=== PATIENT | male | born 1980 | race African-American/Black ===

== ENCOUNTER 2018-12-24 16:06 | Inpatient (IN) | payer OTHER ==
[~2018-12-24] VITALS: Ht 180.3 cm; Wt 90.7 kg
--- NOTE | 2018-12-24 16:15 | NUR ---
PATIENT BIB W/C TO ER BED 4.
[2018-12-24 16:20] VITALS: BP 110/62
--- NOTE | 2018-12-24 16:24 | NUR ---
DR. SANTIAGO BEDSIDE EVALUATING PT
[2018-12-24] MEDS ORDERED: MORPHINE SULFATE 4 MG/ML SYR IVP ONE ×2 (16:35→17:35)
[2018-12-24] MEDS ORDERED: ONDANSETRON 4 MG/2 ML VIAL IVP ONE (16:35)
[2018-12-24 16:57] LABS: BASOPHILS % (AUTO) 0.5 % (0.0-2.0); EOSINOPHILS # (AUTO) 0.1 K/uL (0-0.4); EOSINOPHILS % (AUTO) 1.3 % (0.0-4.0); HEMATOCRIT 40.3 % (36-52); HEMOGLOBIN 12.7 g/dL (12.0-18.0); LYMPHOCYTES # (AUTO) 1.7 K/uL (2.0-11.5); LYMPHOCYTES % (AUTO) 42.6 % (20.5-51.1); MEAN CORPUSCULAR HEMOGLOBIN 24 pg (27-31); MEAN CORPUSCULAR HGB CONC 32 g/dL (33-37); MEAN CORPUSCULAR VOLUME 75.4 fL (80-94); MONOCYTES # (AUTO) 0.5 K/uL (0.8-1.0); MONOCYTES % (AUTO) 12.5 % (1.7-9.3); NEUTROPHILS # (AUTO) 1.7 K/uL (1.8-7.7); NEUTROPHILS % (AUTO) 43.1 % (42.2-75.2); PLATELET COUNT (AUTO) 96 K/uL (140-450); RED BLOOD CELL COUNT(AUTO) 5.34 MIL/uL (4.20-6.10); RED CELL DISTRIBUTION WIDTH 13.2 % (11.6-13.7)
[2018-12-24] MEDS ORDERED: DIPH50CA69 PO ×2 (16:58→21:00)
[2018-12-24] MEDS ORDERED: DICL-388 PO (16:58)
[2018-12-24] MEDS ORDERED: OXYC5TAB4 PO ×2 (16:58→20:57)
[2018-12-24] MEDS ORDERED: BENA20TA PO ×2 (16:58→20:57)
[2018-12-24] MEDS ORDERED: MELA5TAB6 PO ×2 (16:58→20:57)
[2018-12-24] MEDS ORDERED: FERR325E14 PO ×2 (16:58→20:57)
[2018-12-24] MEDS ORDERED: ORE25 PO ×2 (16:58→20:57)
[2018-12-24] MEDS ORDERED: [UNRECOGNIZED DRUG - CODE] PO ×2 (16:58→20:57)
[2018-12-24] MEDS ORDERED: PSEU30TA PO ×2 (16:58→20:57)
[2018-12-24] MEDS ORDERED: FURO-570 PO ×2 (16:58→20:57)
[2018-12-24] MEDS ORDERED: METF500T2 PO ×2 (16:58→20:57)
[2018-12-24] MEDS ORDERED: GABA100C PO ×2 (16:58→20:57)
[2018-12-24] MEDS ORDERED: OXYC60TE PO ×2 (16:58→20:57)
[2018-12-24] MEDS ORDERED: FAMO-90 PO ×2 (16:58→20:57)
[2018-12-24] MEDS ORDERED: TRAZ-343 PO ×3 (16:58→20:58)
[2018-12-24] MEDS ORDERED: PHEN100C3 PO ×2 (16:58→20:57)
[2018-12-24] MEDS ORDERED: GABA300C PO (16:58)
[2018-12-24] MEDS ORDERED: LEVE500T18 PO ×2 (16:58→20:57)
[2018-12-24] MEDS ORDERED: ALPR0.5T2 PO ×2 (16:58→20:11)
[2018-12-24] MEDS ORDERED: CLOP75TA55 PO ×2 (16:58→20:57)
[2018-12-24] MEDS ORDERED: [UNRECOGNIZED DRUG - CODE] PO ×2 (16:58→20:57)
[2018-12-24 17:17] LABS: ALBUMIN 3.7 g/dL (3.4-5.0); ANION GAP 12.4 (8-16); CARBON DIOXIDE 31.5 mmol/L (21-32); TOTAL BILIRUBIN 0.3 mg/dL (0.0-1.0)
[2018-12-24 17:19] LABS: POTASSIUM 2.9 mmol/L (3.5-5.1)
[2018-12-24 17:28] LABS: CREATINE KINASE MB 2.4 ng/mL (0-3.6)
--- NOTE | 2018-12-24 17:45 | NUR ---
COLLECTED URINE SAMPLE FORM THE PT.
[2018-12-24] MEDS ORDERED: KCL 20 MEQ/WATER INJ PREMIX 100 ML IV ONE (17:50)
--- NOTE | 2018-12-24 17:50 | NUR ---
ADMINISTERED MORPHINE ORDERED. PT REFUSED TO TAKE NITROGLYCERINE AND ASPIRIN , STATES TO HAVE ALLERGY TO THOSE MEDICATION. DR. SHARMA AWARE. WILL CONTINUE TO MONITIOR PT.
[2018-12-24 18:21] LABS: BARBITURATE, URINE NEG. ng/ml (NEG <=200); BENZODIAZEPINE, URINE NEG. ng/mL (NEG <=200); CANNABINOID, URINE NEG. ng/mL (NEG <=50); COCAINE, URINE NEG. ng/mL (NEG <=300); OPIATE, URINE POS. ng/mL (NEG <=2000); PHENCYCLIDINE SCREEN,URINE NEG. ng/mL (NEG <=25)
--- NOTE | 2018-12-24 18:40 | NUR ---
PT MOANING WITH CHEST PAIN. DR. SHARMA AWARE. AT HIS BEDSIDE. WILL CONTINUE TO MONITOR PT.
[2018-12-24] MEDS ORDERED: ZOLPIDEM 5 MG TAB PO PRN (18:45)
[2018-12-24] MEDS ORDERED: LORazepam 2 MG/ML VIAL IM/IVP PRN ×2 (18:45→20:15)
[2018-12-24] MEDS ORDERED: DOCUSATE SODIUM 100 MG GELCAP PO PRN (18:45)
[2018-12-24] MEDS ORDERED: ONDANSETRON 4 MG/2 ML VIAL IM/IVP PRN (18:45)
[2018-12-24] MEDS ORDERED: POTASSIUM CHLORIDE 40 MEQ, LIDOCAINE MPF 1% - 5 mL VIAL 25 MG in NACL 0.9% 250 ML IV ONE (19:00)
[2018-12-24 19:06] LABS: APPEARANCE,URINE CLEAR (CLEAR); BILIRUBIN,URINE NEGATIVE (NEGATIVE); BLOOD, URINE NEGATIVE (NEGATIVE); COLOR,URINE YELLOW (YELLOW); LEUKOCYTE ESTERASE ,URINE NEGATIVE (NEGATIVE); NITRITE, URINE NEGATIVE (NEGATIVE); UGLUCOSE NEGATIVE (NEGATIVE)
[2018-12-24 19:22] LABS: PROTHROMBIN TIME 10.8 secs (10.8-13.4)
[2018-12-24 19:30] VITALS: BP 111/76
--- NOTE | 2018-12-24 19:30 | NUR ---
Patient will be admitted to care of . Admited to . Will go to room. Belongings list completed. Report to .
--- NOTE | 2018-12-24 19:30 | NUR ---
RECEIVED REPORT FROM ER NURSE. PATIENT IS AWAKE, ALERT, AND COOPERATIVE. RESPIRATION EVEN UNLABORED ON ROOM AIR. NO DISTRESS NOTED. SKIN IS WARM AND DRY. IV PATENT AND INTACT. PATIENT COMPLAINED OF CHEST PAIN 01/31. DOCTOR SACHIN AT BEDSIDE. AUSCULTATION OF LUNGS SOUNDS CLEAR. BOWEL SOUNDS PRESENT IN ALL QUADRANT. ABDOMEN SOFT AND NON-TENDER. LAST BM 12/24/18. VITALS WERE TAKEN. MRSA SCREEN DONE. SEIZURE PRECAUTION IN PLACE. PLAN OF CARE WAS DISCUSSED. ORIENT PATIENT TO ROOM, STAFF, AND CALL LIGHT. BED IS AT LOW POSITION. CALL LIGHT WITHIN REACH AND VERBALIZES ITS USE. WILL CONTINUE TO MONITOR.
--- NOTE | 2018-12-24 19:31 | NUR ---
REPORT GIVEN TO LISA JUNE. PT STABLE AT THIS TIME.
[2018-12-24 19:37] LABS: CHOL/HDL RATIO 2.3 (1-4.5); MAGNESIUM 1.8 mg/dL (1.8-2.4); THYROID STIMULATING HORMONE 0.72 uIU/mL (0.34-3.74)
[2018-12-24] MEDS ORDERED: MAG SULF 2000 MG/WATER PREMIX 50 ML IV ONE (20:20)
[2018-12-24] MEDS: NACL 0.9% 1,000 ML IV SCH (20:23)
[2018-12-24] MEDS ORDERED: KCL 20 MEQ/WATER INJ PREMIX 200 ML IV ONE (20:25)
[2018-12-24] MEDS: HYDROmorphone PFS 2 MG/ML SYR IVP PRN (20:30)
[2018-12-24] MEDS: ATORVASTATIN 20 MG TAB PO SCH (20:30)
--- NOTE | 2018-12-24 20:30 | NUR ---
PATIENT COMPLAINED OF CHEST PAIN 8/. PRN PAIN MED ADMINISTERED. WILL CONTINUE TO MONITOR.
[2018-12-24] MEDS ORDERED: SERT25TA PO (20:57)
[2018-12-24] MEDS ORDERED: BUS5 PO (20:57)
[2018-12-24] MEDS ORDERED: PHENYTOIN 100 MG CAPER PO SCH (21:00)
[2018-12-24] MEDS ORDERED: DICL100T2 PO (21:00)
[2018-12-24] MEDS ORDERED: oxyCODONE 5 MG TAB PO SCH (21:00)
--- NOTE | 2018-12-24 21:00 | NUR ---
ALL SCHEDULED MEDS WERE GIVEN PER ORDER. WILL CONTINUE TO MONITOR.
[2018-12-24] MEDS ORDERED: MELATONIN 3 MG TAB PO PRN (21:10)
[2018-12-24] MEDS: CLOPIDOGREL 75 MG TAB PO SCH (21:10)
[2018-12-24] MEDS ORDERED: DICLOFENAC 75 MG TABEC PO SCH (21:10)
[2018-12-24] MEDS: traZODone 50 MG TAB PO SCH (21:48)
[2018-12-24] MEDS: diphenhydrAMINE 50 MG CAP PO SCH (21:48)
[2018-12-24] MEDS: busPIRone 5 MG TAB PO SCH (21:48)
[2018-12-24] MEDS: levETIRAcetam 500 MG TAB PO SCH (21:49)
[2018-12-24] MEDS: FERROUS SULFATE 325 MG TABEC PO SCH (21:49)
[2018-12-24] MEDS: ALPRAZolam 0.5 MG TAB PO SCH (21:50)
[2018-12-24] MEDS: GABAPENTIN 300 MG CAP PO SCH (21:50)
[2018-12-24] MEDS: BENAZEPRIL 20 MG TAB PO SCH (21:50)
[2018-12-24] MEDS: FAMOTIDINE 20 MG TAB PO SCH (21:50)
[2018-12-24] MEDS: metFORMIN 500 MG TAB PO SCH (21:51)
--- NOTE | 2018-12-24 23:00 | NUR ---
CHECKED PATIENT. PATIENT IN BED WATCHING TV NO DISTRESS NOTED. WILL CONTINUE TO MONITOR.
[2018-12-25] VITALS: BP 111/61
--- NOTE | 2018-12-25 | NUR ---
VITALS WERE TAKEN. PATIENT IN STABLE CONDITION. NO DISTRESS NOTED. WILL CONTINUE TO MONITOR.
--- NOTE | 2018-12-25 00:40 | NUR ---
PATIENT COMPLAINED OF FEELING ANXIOUS. PRN ATIVAN 1MG ADMINISTERED PER ORDER. WILL CONTINUE TO MONITOR.
[2018-12-25] MEDS ORDERED: OXYC5TAB4 PO (01:00)
[2018-12-25] MEDS ORDERED: OXYC60TE PO (01:06)
[2018-12-25] MEDS: HYDROmorphone PFS 2 MG/ML SYR IVP PRN ×2 (02:48→08:13)
--- NOTE | 2018-12-25 02:48 | NUR ---
PATIENT WOKE UP FROM CHEST PAIN 01/31. PRN PAIN MED ADMINISTERED PER ORDER. WILL CONTINUE TO MONITOR.
[2018-12-25 03:12] LABS: BASOPHILS % (AUTO) 0.5 % (0.0-2.0); EOSINOPHILS # (AUTO) 0.1 K/uL (0-0.4); EOSINOPHILS % (AUTO) 0.6 % (0.0-4.0); HEMATOCRIT 40.6 % (36-52); HEMOGLOBIN 12.8 g/dL (12.0-18.0); LYMPHOCYTES # (AUTO) 1.7 K/uL (2.0-11.5); LYMPHOCYTES % (AUTO) 19.6 % (20.5-51.1); MEAN CORPUSCULAR HEMOGLOBIN 24 pg (27-31); MEAN CORPUSCULAR HGB CONC 32 g/dL (33-37); MEAN CORPUSCULAR VOLUME 76.1 fL (80-94); MONOCYTES # (AUTO) 0.7 K/uL (0.8-1.0); MONOCYTES % (AUTO) 8.1 % (1.7-9.3); NEUTROPHILS # (AUTO) 6.1 K/uL (1.8-7.7); NEUTROPHILS % (AUTO) 71.2 % (42.2-75.2); PLATELET COUNT (AUTO) 94 K/uL (140-450); RED BLOOD CELL COUNT(AUTO) 5.34 MIL/uL (4.20-6.10); RED CELL DISTRIBUTION WIDTH 13.2 % (11.6-13.7); WHITE BLOOD COUNT (AUTO) 8.6 K/uL (4.8-10.8)
[2018-12-25] MEDS ORDERED: INSULIN LISPRO SLIDING SCALE 100 UNITS/ML VIAL SUBQ PRN (03:15)
[2018-12-25] MEDS ORDERED: DEXTROSE 50% 50 ML SYR IVP PRN (03:15)
[2018-12-25 03:23] LABS: ANION GAP 12.3 (8-16); CARBON DIOXIDE 29.9 mmol/L (21-32); CREATININE 1.1 mg/dL (0.7-1.3); POTASSIUM 4.2 mmol/L (3.5-5.1)
[2018-12-25 04:00] VITALS: BP 94/58
--- NOTE | 2018-12-25 04:00 | NUR ---
VITALS WERE TAKEN. PATIENT IN STABLE CONDITION. NO DISTRESS NOTED. WILL CONTINUE TO MONITOR.
[2018-12-25] MEDS: BLOOD GLUCOSE MONITORING 1 DEV DEV FS SCH ×4 (06:24→20:59)
--- NOTE | 2018-12-25 06:30 | NUR ---
PATIENT WENT TO CT SCAN IN STABLE CONDITION. NO DISTRESS NOTED.
--- NOTE | 2018-12-25 07:14 | NUR ---
ENDORSED PATIENT TO DAY SHIFT NURSE FOR CONTINUITY OF CARE. PATIENT IN STABLE CONDITION.
--- NOTE | 2018-12-25 07:15 | NUR ---
RECEIVED ENDORSEMENT FROM INSPECTOR SCREEN PRINTING NURSE. PATIENT IS SLEEPING, EASILY AROUSABLE. RIGHT FA 20G IV INTACT, PATENT, AND INFUSING IVF. PATIENT DENIES ANY PAIN. PLAN OF CARE WAS REVIEWED WITH PATIENT. PATIENT VERBALIZED UNDERSTANDING. SAFETY MEASURES IN PLACE, CALL LIGHT WITHIN REACH. Addendum: 12/25/18 at 0728 by Carolina Pedro RN RESPIRATIONS ARE EVEN AND UNLABORED ON ROOM AIR.
[2018-12-25 08:00] VITALS: BP 106/58
[2018-12-25] MEDS: metFORMIN 500 MG TAB PO SCH ×2 (08:14→17:51)
[2018-12-25] MEDS: GABAPENTIN 300 MG CAP PO SCH ×4 (08:18→21:04)
[2018-12-25] MEDS: ALPRAZolam 0.5 MG TAB PO SCH (08:19)
[2018-12-25] MEDS: SERTRALINE 50 MG TAB PO SCH (08:20)
[2018-12-25] MEDS: FAMOTIDINE 20 MG TAB PO SCH ×2 (08:21→21:05)
[2018-12-25] MEDS: levETIRAcetam 500 MG TAB PO SCH ×2 (08:21→21:03)
[2018-12-25] MEDS: PHENYTOIN 100 MG CAPER PO SCH ×2 (08:21→21:03)
[2018-12-25] MEDS: FERROUS SULFATE 325 MG TABEC PO SCH ×2 (08:21→21:03)
[2018-12-25] MEDS: CLOPIDOGREL 75 MG TAB PO SCH (08:22)
--- NOTE | 2018-12-25 08:32 | NUR ---
ADMINISTERED SCHEDULED MEDICATIONS. HELD CLOPIDOGREL FOR PLATELETS OF 94. PATIENT TOLERATED WELL. PATIENT C/O PAIN TO CHEST. ADMINISTERED DILAUDID PRN IVP. NO OTHER NEEDS AT THIS TIME, WILL CONTINUE TO MONITOR.
[2018-12-25] MEDS ORDERED: CA CARB PO SCH (09:00)
[2018-12-25] MEDS ORDERED: LISINOPRIL 5 MG TAB PO SCH (09:00)
[2018-12-25] MEDS ORDERED: GLUC PO SCH (09:00)
[2018-12-25] MEDS ORDERED: MAG OX PO SCH (09:00)
[2018-12-25] MEDS ORDERED: GINSENG PO SCH (09:00)
--- NOTE | 2018-12-25 09:16 | NUR ---
PATIENT HAS BEEN SCREENED AND CATEGORIZED MODERATE NUTRITION RISK. PATIENT WILL BE SEEN WITHIN 3-5 DAYS OF ADMISSION. 12/27/1802/09JUAN M SAMANIEGO MBA, RD
[2018-12-25] MEDS ORDERED: HYDROmorphone PFS 2 MG/ML SYR IVP PRN (09:30)
[2018-12-25] MEDS ORDERED: oxyCODONE 10 MG TABER PO SCH ×2 (09:30)
[2018-12-25] MEDS: busPIRone 5 MG TAB PO SCH ×3 (09:41→17:51)
[2018-12-25] MEDS: METOPROLOL 25 MG TAB PO SCH ×2 (09:42→21:00)
[2018-12-25] MEDS: BENAZEPRIL 20 MG TAB PO SCH ×2 (09:43→21:06)
[2018-12-25] MEDS: FUROSEMIDE 40 MG TAB PO SCH (09:43)
--- NOTE | 2018-12-25 09:49 | NUR ---
ADMINISTERED SCHEDULED MEDICATIONS. ADMINISTERED OXYCODONE, ASKED PHARMACY IF OK TO GIVE DUE TO ALLERGY TO HYDROCODONE. PER PHARMACY, THIS IS PATIENTS HOME MED. ADMINISTERED PO BENADRYL, PATIENT STATES HE IS ALLERGIC TO MILK AND APPLES. NO OTHER NEEDS AT THIS TIME, WILL CONTINUE TO MONITOR. Addendum: 12/25/18 at 0953 by Carolina Pedro RN DR. KO IS AWARE OF ALLERGY TO MILK
--- NOTE | 2018-12-25 09:56 | NUR ---
PATIENT STATED HE NEEDED SOMETHING "RIGHT NOW." ORDERED IVP BENADRYL. ADMINISTERED BENADRYL ONE TIME IVP. Addendum: 12/25/18 at 0957 by Carolina Pedro RN PATIENT TOLERATED WELL, NO OTHER NEEDS AT THIS TIME.
[2018-12-25] MEDS ORDERED: diphenhydrAMINE 50 MG/ML VIAL IVP SCH (10:00)
--- NOTE | 2018-12-25 10:58 | NUR ---
NOTIFIED DR. PIKE THAT HIS PATIENT IS HERE, PER . DR. PIKE STATED THAT HE WOULD NOT LIKE TO THAT OVER THE PATIENTS CARE AT THIS TIME. DR. GUTIERRES IS AWARE.
--- NOTE | 2018-12-25 11:15 | NUR ---
PER DR. GUTIERRES ORDER, FAXED REQUEST TO [facility] FOR PERCUTANEOUS CORONARY INTERVENTION.
--- NOTE | 2018-12-25 11:30 | NUR ---
PATIENTS BLOOD SUGAR 63. GAVE PATIENT ORANGE JUICE, PUDDING, SOUP, AND CRACKERS. PATIENT IS ASYMPTOMATIC AT THIS TIME. WILL CONTINUE TO MONITOR.
[2018-12-25 12:00] VITALS: BP 109/56
[2018-12-25] MEDS: oxyCODONE 5 MG TAB PO SCH ×2 (12:24→21:07)
--- NOTE | 2018-12-25 12:30 | NUR ---
ADMINISTERED SCHEDULED MEDICATIONS. PATIENT C/O OF PAIN. ADMINISTERED SCHEDULED PAIN MEDICATION. NO OTHER NEEDS AT THIS TIME, WILL CONTINUE TO MONITOR.
[2018-12-25] MEDS: MORPHINE SULFATE 2 MG/ML SYR IVP PRN ×2 (13:47→20:16)
--- NOTE | 2018-12-25 14:50 | NUR ---
PATIENT ASKING FOR SANDWICH, EDUCATED [facility]. PATIENT DENIES PAIN AT THIS TIME. NO OTHER NEEDS AT THIS TIME, WILL CONTINUE TO MONITOR.
[2018-12-25 16:00] VITALS: BP 94/54
--- NOTE | 2018-12-25 16:50 | NUR ---
PATIENT SLEEPING, EASILY AROUSABLE. NO OTHER NEEDS AT THIS TIME, WILL CONTINUE TO MONITOR.
[2018-12-25] MEDS ORDERED: DICLOFENAC 75 MG TABEC PO SCH (17:00)
--- NOTE | 2018-12-25 17:52 | NUR ---
VOLTAREN NOT AVAILABLE IN [place]. AWAITING PHARMACY. NOT IN PATIENTS CASSETTE EITHER.
[2018-12-25] MEDS: NACL 0.9% 1,000 ML IV SCH (18:44)
--- NOTE | 2018-12-25 19:20 | NUR ---
RECEIVED PT IN STABLE CONDITION FROM AM NURSE. AWAKE,ALERT AND ORIENTED X4. ON TELE MONITOR. NO DISCOMFORT NOTED AT THIS TIME. HAS IVF INFUSING WELL ON THE RT FA G#20, CLEAR AND PATENT. PLAN OF CARE DISCUSSED AND VERBALIZED UNDERSTANDING. BED ON LOW POSITION. CALL LIGHT WITHIN EASY REACH. WILL CONTINUE TO MONITOR.
--- NOTE | 2018-12-25 19:20 | NUR ---
ENDORSED TO RISK CONTROL FIELD REPRESENTATIVE NURSE FOR CONTINUITY OF CARE. PATIENT IS STABLE AT THIS TIME.
[2018-12-25 19:45] VITALS: BP 106/56
--- NOTE | 2018-12-25 20:59 | NUR ---
BLOOD SUGAR WAS CHECKED RESULT 73. PROVIDED WITH SOME SANDWICH AND JUICE. TOLERATED WELL. WILL CONTINUE TO MONITOR.
[2018-12-25] MEDS: diphenhydrAMINE 50 MG CAP PO SCH (21:02)
[2018-12-25] MEDS: traZODone 50 MG TAB PO SCH (21:03)
[2018-12-25] MEDS: ATORVASTATIN 20 MG TAB PO SCH (21:04)
[2018-12-25] MEDS: oxyCODONE 10 MG TABER PO SCH (21:05)
[2018-12-25] MEDS ORDERED: ALBUTEROL SULFATE/IPRATROPIU 3 ML SOL IH PRN (22:05)
--- NOTE | 2018-12-25 22:30 | NUR ---
PT DISCONNECTED TO THE IVF . HAD WASHED UP IN THE BATHROOM. NEW GOWN PROVIDED.
[2018-12-25] MEDS ORDERED: diphenhydrAMINE 50 MG/ML VIAL IVP ONE (23:50)
[2018-12-26] VITALS: BP 105/57
--- NOTE | 2018-12-26 00:01 | NUR ---
C/O ITCHING , DR. CASTILLO MADE AWARE WITH ORDER. BENADRYL 25MG IVP ONCE GIVEN. WILL CONTINUE TO MONITOR.
[2018-12-26] MEDS ORDERED: diphenhydrAMINE 50 MG/ML VIAL ONE (00:11)
--- NOTE | 2018-12-26 03:00 | NUR ---
PT ASLEEP. NO S/S OF ANY DISCOMFORT NOTED.
[2018-12-26] MEDS: oxyCODONE 5 MG TAB PO SCH ×2 (04:25→16:23)
[2018-12-26 04:27] VITALS: BP 107/65
--- NOTE | 2018-12-26 05:00 | NUR ---
PT IS ASLEEP. NO S/S OF ANY PAIN NOTED AT THIS TIME.
[2018-12-26] MEDS: BLOOD GLUCOSE MONITORING 1 DEV DEV FS SCH ×3 (06:17→16:27)
[2018-12-26] MEDS: MORPHINE SULFATE 2 MG/ML SYR IVP PRN ×2 (06:50→12:44)
--- NOTE | 2018-12-26 07:15 | NUR ---
ENDORSED PT IN STABLE CONDITION TO AM NURSE.
--- NOTE | 2018-12-26 07:25 | NUR ---
RECEIVED BEDSIDE REPORT FROM SCREEN MAKING SUPERVISOR NURSE AT BEDSIDE. PT IS AWAKE AND ALERT, NO S/S OF ANY ACUTE DISTRESS OR SOB. PT IS ON ROOM AIR, SKIN INTACT. IV SITE NOTED ON THE R FA 20 G, INFUSING NS 20 ML/HR. ACCORDING TO NIGHT NURSE, PT HAS A [employer] PACEMAKER THAT NEEDS TO BE INTERROGATED TODAY. WILL CONTACT [employer] THIS AM. SEIZURE PRECAUTIONS ARE IN PLACE, CALL LIGHT WITHIN REACH. WILL CONTINUE TO MONITOR.
[2018-12-26 07:30] LABS: ANION GAP 9.6 (8-16); CARBON DIOXIDE 30.8 mmol/L (21-32); CREATININE 0.9 mg/dL (0.7-1.3); POTASSIUM 4.4 mmol/L (3.5-5.1)
[2018-12-26 07:34] LABS: BASOPHILS % (AUTO) 0.5 % (0.0-2.0); EOSINOPHILS # (AUTO) 0.1 K/uL (0-0.4); EOSINOPHILS % (AUTO) 4.2 % (0.0-4.0); HEMATOCRIT 32.6 % (36-52); HEMOGLOBIN 10.3 g/dL (12.0-18.0); LYMPHOCYTES # (AUTO) 1.7 K/uL (2.0-11.5); LYMPHOCYTES % (AUTO) 49.8 % (20.5-51.1); MEAN CORPUSCULAR HEMOGLOBIN 24 pg (27-31); MEAN CORPUSCULAR HGB CONC 32 g/dL (33-37); MEAN CORPUSCULAR VOLUME 76.1 fL (80-94); MONOCYTES # (AUTO) 0.4 K/uL (0.8-1.0); MONOCYTES % (AUTO) 11.5 % (1.7-9.3); NEUTROPHILS # (AUTO) 1.2 K/uL (1.8-7.7); PLATELET COUNT (AUTO) 79 K/uL (140-450); RED BLOOD CELL COUNT(AUTO) 4.28 MIL/uL (4.20-6.10); RED CELL DISTRIBUTION WIDTH 13.6 % (11.6-13.7); WHITE BLOOD COUNT (AUTO) 3.4 K/uL (4.8-10.8)
[2018-12-26 07:35] LABS: MAGNESIUM 1.8 mg/dL (1.8-2.4); PHOSPHORUS 3.6 mg/dL (2.5-4.9)
[2018-12-26 08:00] VITALS: BP 104/64
[2018-12-26] MEDS ORDERED: PHEN100C4 PO (08:27)
[2018-12-26] MEDS ORDERED: BENA20TA PO (08:27)
--- NOTE | 2018-12-26 08:29 | NUR ---
CALLED [employer] TO SCHEDULE A TECH TO COME INTERROGATE PT'S PACEMAKER. THE REP SAID AN ON-CALL [employer] TECH WILL COME OUT TODAY TO INTERROGATE PT'S PACEMAKER.
[2018-12-26] MEDS: CLOPIDOGREL 75 MG TAB PO SCH (09:00)
[2018-12-26] MEDS: busPIRone 5 MG TAB PO SCH ×2 (09:00→16:23)
[2018-12-26] MEDS: METOPROLOL 25 MG TAB PO SCH (09:00)
[2018-12-26] MEDS: BENAZEPRIL 20 MG TAB PO SCH (09:00)
[2018-12-26] MEDS ORDERED: DICLOFENAC 75 MG TABEC PO SCH (09:00)
[2018-12-26] MEDS: metFORMIN 500 MG TAB PO SCH (09:00)
[2018-12-26] MEDS: GABAPENTIN 300 MG CAP PO SCH ×2 (09:00→16:23)
[2018-12-26] MEDS: oxyCODONE 10 MG TABER PO SCH (09:01)
[2018-12-26] MEDS: FUROSEMIDE 40 MG TAB PO SCH (09:01)
[2018-12-26] MEDS: SERTRALINE 50 MG TAB PO SCH (09:01)
[2018-12-26] MEDS: levETIRAcetam 500 MG TAB PO SCH (09:02)
[2018-12-26] MEDS: PHENYTOIN 100 MG CAPER PO SCH (09:02)
[2018-12-26] MEDS: ALPRAZolam 0.5 MG TAB PO SCH (09:02)
[2018-12-26] MEDS: FERROUS SULFATE 325 MG TABEC PO SCH (09:02)
[2018-12-26] MEDS: FAMOTIDINE 20 MG TAB PO SCH (09:02)
--- NOTE | 2018-12-26 09:14 | NUR ---
PT HAD 1 EPISODE OF EMESIS. PT C/O FEELING NAUSEOUS. PRN IV ZOFRAN ADMINISTERED. SCHEDULED AM MEDS ADMINISTERED AFTERWARDS, PT TOLERATED WELL.
--- NOTE | 2018-12-26 11:24 | NUR ---
PT'S BLOOD SUGAR IS CURRENTLY 54. IV DEXTROSE INJECTION ADMINISTERED ORDERED, AND PT WAS GIVEN ORANGE JUICE, AND A TUNA SANDWICH, PER HIS REQUEST. WILL RECHECK PT'S BLOOD SUGAR IN 20 MINUTES.
--- NOTE | 2018-12-26 11:45 | NUR ---
GOT A CALL FROM THE [employer] SONNY MCKEON, HE SAYS THAT PT DOES NOT MATCH ANY NAMES IN THE SYSTEM, ADN THEREFORE WOULD NOT BE ABLE TO BE INTERROGATED BY [employer]. HE SAYS THAT THE PACEMAKER COULD BE MADE BY A DIFFERENT COMPANY AND GAVE ME THREE OTHER COMPANIES TO CALL AND SEE IF THEY MATCH THE PT. THE COMPANIES ARE [employer] [phone]; [employer] [phone]; [employer] [phone]. WILL CALL EACH OF THEM TO SEE IF PT IS IN EITHER DATABASE . CHARGE NURSE IS AWARE. Addendum: 12/26/18 at 1213 by Amy Shea RN PT IS NOT IN THE DATABASE OF ANY OF THESE PACEMAKER COMPANIES. DR KO IS AWARE, AND HE WILL CANCEL THE PACEMAKER INTERROGATION ORDER.
--- NOTE | 2018-12-26 11:59 | NUR ---
PT BLOOD GLUCOSE IS 95 AT THIS TIME
[2018-12-26 12:00] VITALS: BP 124/64
[2018-12-26] MEDS ORDERED: FAMO-90 PO (12:45)
== END 2018-12-26 18:30 | disposition home or self-care (01) | DRG 243 ==
LOC: MED 16:06 → MTU 18:50
PROVIDERS: ADMIT General Practice; ATTEND General Practice
DX: K21.9 Gastro-esophageal reflux disease without esophagitis (principal); I50.43 Acute on chronic combined systolic (congestive) and diastolic (congestive) heart failure; E11.40 Type 2 diabetes mellitus with diabetic neuropathy, unspecified; G90.8 Other disorders of autonomic nervous system; C16.9 Malignant neoplasm of stomach, unspecified; D69.6 Thrombocytopenia, unspecified; D68.59 Other primary thrombophilia; E11.69 Type 2 diabetes mellitus with other specified complication; I11.0 Hypertensive heart disease with heart failure; M94.0 Chondrocostal junction syndrome [Tietze]; I69.354 Hemiplegia and hemiparesis following cerebral infarction affecting left non-dominant side; E87.6 Hypokalemia; I25.2 Old myocardial infarction; Z95.810 Presence of automatic (implantable) cardiac defibrillator; Z88.6 Allergy status to analgesic agent; Z79.84 Long term (current) use of oral hypoglycemic drugs; Z79.02 Long term (current) use of antithrombotics/antiplatelets; Z79.899 Other long term (current) drug therapy; G40.909 Epilepsy, unspecified, not intractable, without status epilepticus; G47.00 Insomnia, unspecified; F41.9 Anxiety disorder, unspecified; J44.9 Chronic obstructive pulmonary disease, unspecified; Z82.3 Family history of stroke; Z83.3 Family history of diabetes mellitus; Z80.42 Family history of malignant neoplasm of prostate; Z80.3 Family history of malignant neoplasm of breast; Z80.0 Family history of malignant neoplasm of digestive organs; D63.8 Anemia in other chronic diseases classified elsewhere; G89.4 Chronic pain syndrome; I25.10 Atherosclerotic heart disease of native coronary artery without angina pectoris; Z95.5 Presence of coronary angioplasty implant and graft; D72.819 Decreased white blood cell count, unspecified
CPT/HCPCS: 36415; 70450; 71045; 80048; 80053; 80185; 80305; 81003; 82550; 82553; 82948; 83036; 83690; 83735; 83880; 84100; 84134; 84443; 84484; 85025; 85610; 85730; 87081; 93005; 94640; 96374; 96375; 96376; 99285; J1170; J1200; J2001; J2060; J2270; J2405; J3475; J3480; J7030; J7620; Q0092; Q0163

== ENCOUNTER 2019-01-22 13:15 | Observation (INO) | payer OTHER ==
[~2019-01-22] VITALS: Ht 190.5 cm; Wt 88.9 kg
[~2019-01-22 13:15] MED LIST: ALPR0.5T2 PO; BENA20TA PO; BUS5 PO; CLOP75TA55 PO; DICL100T2 PO; DIPH50CA69 PO; FAMO-90 PO; FURO-570 PO; GABA100C PO; LEVE500T18 PO; ORE25 PO; OXYC60TE PO; PHEN100C4 PO; SERT25TA PO; TRAZ-343 PO
[2019-01-22 13:21] VITALS: BP 112/68
--- NOTE | 2019-01-22 13:25 | NUR ---
PT C/O CHEST PAIN STARTED LAST NIGHT RADIATING TO BOTH SIDES OF JAW. PAIN 10/10 DESCRIBED PRESSURE. PATIENT STATES HE WAS ASLEEP AND THE PAIN WOKE HIM UP. DENIES DRUG USE. DENIES N/V/D; SKIN IS PINK/WARM/DRY; AAOX4 WITH EVEN AND STEADY GAIT; LUNGS CLEAR BL; HR EVEN AND REGULAR; PT DENIES ANY FEVER, SOB, OR COUGH AT THIS TIME; PATIENT STATES PAIN OF 10/10 AT THIS TIME; VSS; PATIENT POSITIONED FOR COMFORT; HOB ELEVATED; BEDRAILS UP X2; BED DOWN. ER MD MADE AWARE OF PT STATUS.
--- NOTE | 2019-01-22 13:25 | NUR ---
PT WHEELCHAIRED TO BED 2
[2019-01-22] MEDS ORDERED: MORPHINE SULFATE 4 MG/ML SYR IVP ONE ×2 (13:50→15:15)
[2019-01-22 14:26] LABS: BASOPHILS % (AUTO) 0.4 % (0.0-2.0); EOSINOPHILS # (AUTO) 0.1 K/uL (0-0.4); EOSINOPHILS % (AUTO) 1.4 % (0.0-4.0); HEMOGLOBIN 12.3 g/dL (12.0-18.0); LYMPHOCYTES # (AUTO) 1.6 K/uL (2.0-11.5); LYMPHOCYTES % (AUTO) 35.4 % (20.5-51.1); MEAN CORPUSCULAR HEMOGLOBIN 24 pg (27-31); MEAN CORPUSCULAR HGB CONC 32 g/dL (33-37); MEAN CORPUSCULAR VOLUME 74.9 fL (80-94); MONOCYTES # (AUTO) 0.4 K/uL (0.8-1.0); MONOCYTES % (AUTO) 8.2 % (1.7-9.3); NEUTROPHILS # (AUTO) 2.5 K/uL (1.8-7.7); NEUTROPHILS % (AUTO) 54.6 % (42.2-75.2); PLATELET COUNT (AUTO) 130 K/uL (140-450); RED CELL DISTRIBUTION WIDTH 13.7 % (11.6-13.7); WHITE BLOOD COUNT (AUTO) 4.5 K/uL (4.8-10.8)
[2019-01-22 14:34] LABS: ANION GAP 8.7 (8-16); CREATININE 0.9 mg/dL (0.7-1.3); POTASSIUM 3.7 mmol/L (3.5-5.1)
[2019-01-22 14:39] LABS: ALBUMIN 3.4 g/dL (3.4-5.0); TOTAL BILIRUBIN 0.2 mg/dL (0.0-1.0)
--- NOTE | 2019-01-22 15:00 | NUR ---
PT IS RESTING IN BED. FOOD PROVIDED.
[2019-01-22] MEDS ORDERED: cefTRIAXone 1,000 MG VIAL ONE (15:30)
[2019-01-22] MEDS ORDERED: PHEN100C3 PO (16:11)
[2019-01-22] MEDS ORDERED: MSCON15 PO (16:11)
[2019-01-22] MEDS ORDERED: CALC-106 PO (16:11)
[2019-01-22] MEDS ORDERED: CARB100T PO (16:11)
[2019-01-22] MEDS ORDERED: OXYC30TA PO (16:11)
[2019-01-22] MEDS ORDERED: ALPR2TAB1 PO (16:11)
[2019-01-22] MEDS ORDERED: [UNRECOGNIZED DRUG - CODE] PO (16:11)
[2019-01-22] MEDS ORDERED: MIC5 PO (16:11)
[2019-01-22] MEDS ORDERED: FISH10005 PO (16:11)
[2019-01-22] MEDS ORDERED: METF500T PO (16:11)
[2019-01-22] MEDS ORDERED: OXYC60TE PO (16:11)
[2019-01-22] MEDS ORDERED: ORE25 PO (16:11)
[2019-01-22] MEDS ORDERED: DOCU-299 PO (16:11)
[2019-01-22] MEDS ORDERED: GABA300C PO (16:11)
[2019-01-22] MEDS ORDERED: POTA10TE30 PO (16:11)
[2019-01-22] MEDS ORDERED: BENA20TA PO (16:11)
[2019-01-22] MEDS ORDERED: DIPH25TA53 PO (16:20)
[2019-01-22] MEDS ORDERED: CYAN100T65 PO (16:20)
[2019-01-22] MEDS ORDERED: AUROBINDO PO (16:23)
[2019-01-22] MEDS ORDERED: PRON INH (16:23)
[2019-01-22] MEDS ORDERED: ALBU0.0912 IH (16:23)
--- NOTE | 2019-01-22 17:30 | NUR ---
Patient will be admitted to care of Chest pain. Admited to telemetry. Will go to room 119b. Belongings list completed. Report to LISA Jack.
[2019-01-22 17:35] VITALS: BP 116/69
--- NOTE | 2019-01-22 17:35 | NUR ---
RECEIVED REPORT FROM EMERGENCY ROOM NURSE FOR CONTINUITY OF CARE. PT IN STABLE CONDITION. RESPIRATIONS EVEN AND UNLABORED, ROOM AIR. IV INTACT AND PATENT. SAFETY MEASURES IN PLACE. BED IN LOW POSITION. CALL LIGHT AT BESIDE.
--- NOTE | 2019-01-22 17:36 | NUR ---
DR. ROJAS AT BEDSIDE FOR CARDIOLOGY CONSULTATION.
--- NOTE | 2019-01-22 18:50 | NUR ---
TATO MEI DR. 0.5 DILAUDID IVP Q6.
--- NOTE | 2019-01-22 19:34 | NUR ---
GAVE REPORT TO ROSTER CLERK NURSE FOR CONTINUITY OF CARE. PT IN STABLE CONDITION.
--- NOTE | 2019-01-22 19:35 | NUR ---
RECEIVED REPORT FROM AM RN IN BED SITTING UP AWAKE AND ALERT WATCHING TV. PT. ASKING FOR SANDWICH RT COMPLAINED OF BEING VERY HUNGRY. CALL LIGHT WITH IN REACH. CHARGE NURSE INFORMED OF PT. REQUEST. DX. CHEST PAIN A ND PNA. VERBALIZES WELL WITH ME AND ABLE TO COMMUNICATE WELL. TELEMETRY MONITORING. RE-ORIENTED TO CALL LIGHT USE AND CARE PLANS FOR THE NIGHT DISCUSSED WITH HIM. RFA#20 INTACT AND NO INFILTRATION.
[2019-01-22 19:58] VITALS: BP 110/65
[2019-01-22] MEDS: HYDROmorphone 1 MG/ML AMP IVP PRN (20:15)
--- NOTE | 2019-01-22 20:16 | NUR ---
PT. SITTING UP IN BED AND MEDICATED WITH DILAUDID IVP 0.5 MG REQUESTED. ABLE TO VERBALIZE NEEDS WELL.
[2019-01-22 21:05] LABS: BARBITURATE, URINE NEG. ng/ml (NEG <=200); BENZODIAZEPINE, URINE NEG. ng/mL (NEG <=200); CANNABINOID, URINE NEG. ng/mL (NEG <=50); COCAINE, URINE NEG. ng/mL (NEG <=300); OPIATE, URINE POS. ng/mL (NEG <=2000); PHENCYCLIDINE SCREEN,URINE NEG. ng/mL (NEG <=25)
--- NOTE | 2019-01-22 21:10 | NUR ---
PT. AT THIS TIME STILL AWAKE AND WATCHING TV. NO FURTHER COMPLAINTS DONE. CALL LIGHT WITH IN REACH.
[2019-01-22] MEDS ORDERED: ONDANSETRON 4 MG/2 ML VIAL IVP PRN (22:30)
--- NOTE | 2019-01-22 23:00 | NUR ---
SLEEPING. NO RESTLESSNESS NOTED. TELEMETRY MONITORING.
[2019-01-22 23:47] VITALS: BP 110/71
--- NOTE | 2019-01-23 02:40 | NUR ---
SLEEPING. TELEMETRY MONITORING. CALL LIGHT WITH IN REACH.
[2019-01-23 04:31] VITALS: BP 111/61
[2019-01-23] MEDS: HYDROmorphone 1 MG/ML AMP IVP PRN ×2 (04:34→10:54)
--- NOTE | 2019-01-23 06:24 | NUR ---
MD MCLAUGHLIN IN HERE AND SEEN PT. NO ORDERS GIVEN TO ME.
--- NOTE | 2019-01-23 07:25 | NUR ---
RECEIVED BEDSIDE REPORT FROM VEGETABLE SORTER NURSE FOR CONTINUITY OF CARE. PATIENT AWAKE AND WATCHING TV ON BED. PATIENT AAOX4. RESPIRATION EVEN AND UNLABORED ON RA. DENIED PAIN. NO SIGNS OF DISTRESS NOTED. IV ON RFA 20,CLEAN AND INTACT,SL. SKIN CLEAN AND INTACT. PATIENT IS ABLE TO AMBULATE WITH STANDBY ASSIST AND CONTINENT. DISCUSSED PLAN OF CARE WITH PATIENT AND PATIENT VERBALIZED UNDERSTANDING. TELE MONITOR ATTACHED. SAFETY MEASURES IN PLACE. BED IN LOW POSITION AND CALL LIGHT WITHIN REACH. INSTRUCTED PATIENT TO USE THE CALL LIGHT FOR ANY ASSISTANCE AND PATIENT WAS AWARE.
[2019-01-23 07:28] LABS: BASOPHILS % (AUTO) 0.7 % (0.0-2.0); EOSINOPHILS # (AUTO) 0.1 K/uL (0-0.4); HEMATOCRIT 40.6 % (36-52); HEMOGLOBIN 12.7 g/dL (12.0-18.0); LYMPHOCYTES # (AUTO) 2.1 K/uL (2.0-11.5); LYMPHOCYTES % (AUTO) 40.9 % (20.5-51.1); MEAN CORPUSCULAR HEMOGLOBIN 24 pg (27-31); MEAN CORPUSCULAR HGB CONC 31 g/dL (33-37); MEAN CORPUSCULAR VOLUME 75.8 fL (80-94); MONOCYTES # (AUTO) 0.4 K/uL (0.8-1.0); NEUTROPHILS # (AUTO) 2.4 K/uL (1.8-7.7); NEUTROPHILS % (AUTO) 48.4 % (42.2-75.2); PLATELET COUNT (AUTO) 114 K/uL (140-450); RED BLOOD CELL COUNT(AUTO) 5.36 MIL/uL (4.20-6.10); RED CELL DISTRIBUTION WIDTH 14.1 % (11.6-13.7)
[2019-01-23 07:30] LABS: CARBON DIOXIDE 29.2 mmol/L (21-32); CREATININE 0.9 mg/dL (0.7-1.3); POTASSIUM 4.2 mmol/L (3.5-5.1)
[2019-01-23 08:00] VITALS: BP 105/62
--- NOTE | 2019-01-23 08:09 | NUR ---
PATIENT HAS BEEN SCREENED AND CATEGORIZED MODERATE NUTRITION RISK. PATIENT WILL BE SEEN WITHIN 3-5 DAYS OF ADMISSION. 01/26/19JOSEFA ROBB RD
--- NOTE | 2019-01-23 08:20 | NUR ---
PATIENT SAID THAT HE NEEDS HIS PAIN MED DILAUDID FOR PAIN 5/10. INFORMED PATIENT THAT DALAUDID WAS GIVEN AT 0434 AND SCHEDULE FOR Q6H PRN. PATIENT VERBALIZED UNDERSTANDING AND SAID THE PAIN IS TOLERABLE FOR NOW. TELE MONITOR ATTACHED. SAFETY MEASURES IN PLACE. BED IN LOW POSITION AND CALL LIGHT WITHIN REACH. INSTRUCTED PATIENT TO USE THE CALL LIGHT FOR ANY ASSISTANCE AND PATIENT WAS AWARE.
--- NOTE | 2019-01-23 08:45 | NUR ---
PATIENT COMPLAINED THAT HE HAS 8/10 PAIN AND NEEDED PAIN MED. EXPLAINED TO PATIENT THAT DILAUDID WAS SCHEDULED PRN 6H AND WILL PAGE DR MCLAUGHLIN. PAGED DR MCLAUGHLIN.
--- NOTE | 2019-01-23 09:03 | NUR ---
RECEIVED A CALL BACK FROM DR MCLAUGHLIN. PER DR MCLAUGHLIN, HE WILL NOT CHANGE THE PRN DILAUDID FROM Q6H TO Q4H DUE TO PATIENT'S CONDITION. NOTIFIED PATIENT ON DR MCLAUGHLIN'S DECISION AND PATIENT WAS AWARE. PATIENT WAS RESTING AND WATCHING TV ON BED AT THIS TIME. RESPIRATION EVEN AND UNLABORED ON RA. TELE MONITOR ATTACHED. NO SIGNS OF DISTRESS NOTED. BED IN LOW POSITION AND CALL LIGHT WITHIN REACH. INSTRUCTED PATIENT TO USE THE CALL LIGHT FOR ANY ASSISTANCE AND PATIENT WAS AWARE.
--- NOTE | 2019-01-23 10:25 | NUR ---
PATIENT STATED THAT HE IS HUNGRY AND NEEDS A SANDWICH. PAGED [facility], AND PER [facility], THEY WILL SEND A TURKEY SANDWICH. INFORMED PATIENT THAT [facility] WILL SEND A SANDWICH AND PATIENT SAID OK. PATIENT IS RESTING ON BED AT THIS TIME. NO SIGNS OF DISTRESS NOTED. SAFETY MEASURES IN PLACE. TELE MONITOR ATTACHED. BED IN LOW POSITION AND CALL LIGHT WITHIN REACH.
--- NOTE | 2019-01-23 10:39 | NUR ---
RECEIVED TURKEY SANDWICH AND DELIVERED TO PATIENT'S ROOM. PATIENT AWAKE AND SITTING UP ON BED WATCHING TV. NO SIGNS OF DISTRESS NOTED. SAFETY MEASURES IN PLACE. TELE MONITOR IN PLACE. BED IN LOW POSITION AND CALL LIGHT WITHIN REACH. INSTRUCTED PATIENT TO USE THE CALL LIGHT FOR ANY ASSISTANCE AND PATIENT WAS AWARE.
--- NOTE | 2019-01-23 10:54 | NUR ---
PATIENT COMPLAINED THAT HE HAS 9/10 CHEST PAIN AND HE FEELS RESTLESS AND IRRITABILITY. ADMINISTERED PRN PAIN MED, PATIENT TOLERATED WELL. PATIENT SITTING UP ON BED AND EATING SANDWICH. SAFETY MEASURES IN PLACE. BED IN LOW POSITION AND CALL LIGHT WITHIN REACH. INSTRUCTED PATIENT TO USE THE CALL LIGHT FOR ANY ASSISTANCE AND PATIENT WAS AWARE.
--- NOTE | 2019-01-23 11:02 | NUR ---
PATIENT REQUESTED A DIET SODA. PICKED UP FROM [employer] AND DELIVERED TO PATIENT'S ROOM. PATIENT IS WATCHING TV ON BED. NO SIGNS OF DISTRESS NOTED. SAFETY MEASURES IN PLACE. BED IN LOW POSITION AND CALL LIGHT WITHIN REACH. INSTRUCTED PATIENT TO USE THE CALL LIGHT FOR ANY ASSISTANCE AND PATIENT WAS AWARE.
--- NOTE | 2019-01-23 11:25 | NUR ---
PATIENT FEELS SOB. ASSESSED PATIENT, SPO2 IS 100% ON RA AND RR 18. LUNGS CLEAR ON AUSCULTATION. INSTRUCTED PATIENT TO BREATHING IN AND OUT SLOWLY, AND PATIENT STATED HE FEELS MUCH BETTER NOW. TELE MONITOR ATTACHED. SAFETY MEASURES IN PLACE. BED IN LOW POSITION AND CALL LIGHT WITHIN REACH. INSTRUCTED PATIENT TO USE THE CALL LIGHT FOR ANY ASSISTANCE AND PATIENT WAS AWARE.
--- NOTE | 2019-01-23 11:55 | NUR ---
INFORMED PATIENT THAT HE WILL BE DISCHARGED TODAY FROM THE HOSPITAL. ASKED DOES PATIENT HAVE TRANSPORTATION TO GO HOME OR ANY FAMILY WILL PICK HIM UP. OFFERED BUS PASS. PER PATIENT, HE WILL CALL HIS INSURANCE COMPANY AND THEY WILL PROVIDE HIM TRANSPORTATION TO GO HOME FROM HERE.
[2019-01-23 12:00] VITALS: BP 112/80
--- NOTE | 2019-01-23 12:05 | NUR ---
PER PATIENT, HE CALLED HIS INSURANCE COMPANY AND SAID THAT HIS TRACK GRINDER OPERATOR WILL BE ARRIVE AT THE HOSPITAL AROUND 1430. PATIENT IS RESTING ON BED AT THIS TIME. TELE MONITOR ATTACHED. SAFETY MEASURES IN PLACE. BED IN LOW POSITION AND CALL LIGHT WITHIN REACH. INSTRUCTED PATIENT TO USE THE CALL LIGHT FOR ANY ASSISTANCE AND PATIENT WAS AWARE.
--- NOTE | 2019-01-23 12:35 | NUR ---
PATIENT IS SITTING UP ON BED AND TALKING ON HIS PHONE. NO SIGNS OF DISTRESS NOTED. SAFETY MEASURES IN PLACE. BED IN LOW POSITION AND CALL LIGHT WITHIN REACH. INSTRUCTED PATIENT TO USE THE CALL LIGHT FOR ANY ASSISTANCE AND PATIENT WAS AWARE.
--- NOTE | 2019-01-23 12:50 | NUR ---
PATIENT WANTS TO GET PRESCRIPTION REFILL FOR HIS PAIN AND HOME MEDS. INFORMED PATIENT THAT HE NEEDS TO FOLLOW UP WITH HIS FAMILY DR INSTRUCTED BY DR MCLAUGHLIN. PER PATIENT, HE WANTS TO DR MCLAUGHLIN. PAGED DR MCLAUGHLIN.
--- NOTE | 2019-01-23 13:05 | NUR ---
PATIENT IS TALKING ON PHONE WITH DR MCLAUGHLIN AT THIS TIME. NO SIGNS OF DISTRESS NOTED. TELE MONITOR ATTACHED. SAFETY MEASURES IN PLACE. BED IN LOW POSITION AND CALL LIGHT WITHIN REACH.
--- NOTE | 2019-01-23 13:25 | NUR ---
DISCHARGE INSTRUCTION PROVIDED TO PATIENT AT BEDSIDE. PATIENT IS AAOX4 AND ABLE TO COMMUNICATE APPROPRIATELY. EDUCATED PATIENT ON SEEK MEDICAL HELP IN CASE OF EMERGENCY, MD FOLLOW UP, DISEASE MANAGEMENT, MEDICATION REGIMEN, MEDICATIONS SIDE EFFECTS, AND DIET REGIMEN. ANSWERED ALL PATIENT'S QUESTIONS AND PATIENT VERBALIZED UNDERSTANDING. DC IV AND CANNULA INTACT AND COMPLETED, NO BLEEDING AT IV SITE. REMOVED ALL ARM BANDS AND REMOVED TELE MONITOR. PATIENT CHECKED ALL THE CABINETS AND TOOK ALL HIS BELONGING. WHEEL-CHAIRED PATIENT TO THE LOBBY AND PATIENT IS GOING TO DC AT THIS TIME. PATIENT IS IN STABLE CONDITION.
--- NOTE | 2019-01-23 13:31 | NUR ---
MET WITH THE PATIENT AT THE BEDSIDE TO GATHER INFORMATION REGARDING HIS PCP. HE PROVIDED ME WITH [phone] AND HE STATED THAT HE HAS A FOLLOW UP VISIT IN 2 WEEKS. CONTACTED THE PROVIDED NUMBER, SPOKE TO PADMA IN DR. MCPHERSON'S OFFICE, SHE STATED THAT HE IS NO LONGER THERE PATIENT DUE TO PROVIDER. WENT BACK TO THE PATIENT AND ASK MORE INFORMATION. PATIENT STATED THAT HE WILL TAKE CARE OF THE APPOINTMENT. MST DIRECTOR MAKENZIE AT BEDSIDE GETTING READY TO WHEEL THE PATIENT OUT. PATIENT PROVIDED ME WITH [phone], HIS NEW PCP'S NUMBER. CONTACTED THE SAID NUMBER AND THE ONE THAT ANSWERED ME STATED THAT I GOT THE WRONG NUMBER. CHARGE NURSE MADE AWARE.
--- NOTE | 2019-01-23 16:08 | NUR ---
I CALL PATIENT HE GAVE ME NEW NUMBER FOR HIS PRIMARY MD [phone], relayed to social media marketer to follow up.
--- NOTE | 2019-01-23 16:50 | NUR ---
CONTACTED THE NUMBER WHICH PATIENT PROVIDED TO [facility] DIRECTOR MAKENZIE, . ABLE TO SPEAK TO ELISABET. SHE STATED THAT PATIENT CONTACTED THEM ALREADY AND HAVE AN APPOINTMENT FOR SaturdayJan AT 1500. PCP IS DR. OWEN, ADDRESS IS [address] [place] [id number]. Addendum: 01/23/19 at 1654 by Nasrin Cooper CM PATIENT MADE AWARE OF THE APPOINTMENT. PATIENT IS AGREEABLE.
== END 2019-01-23 13:25 | disposition home or self-care (01) ==
LOC: MED 13:15 → MTU 16:42
PROVIDERS: ADMIT Internal Medicine; ATTEND Internal Medicine
DX: R07.89 Other chest pain (principal); J44.9 Chronic obstructive pulmonary disease, unspecified; I11.0 Hypertensive heart disease with heart failure; I50.22 Chronic systolic (congestive) heart failure; G40.909 Epilepsy, unspecified, not intractable, without status epilepticus; I25.10 Atherosclerotic heart disease of native coronary artery without angina pectoris; E11.9 Type 2 diabetes mellitus without complications; F11.20 Opioid dependence, uncomplicated; Z95.810 Presence of automatic (implantable) cardiac defibrillator; Z95.1 Presence of aortocoronary bypass graft; Z88.6 Allergy status to analgesic agent; Z76.5 Malingerer [conscious simulation]; I42.9 Cardiomyopathy, unspecified
CPT/HCPCS: 36415; 71045; 80048; 80053; 80305; 84484; 85025; 87040; 87081; 96365; 96375; 96376; 99285; G0378; J0696; J1170; J2270; J7060; Q0092

== ENCOUNTER 2019-07-14 16:15 | Inpatient (IN) | payer OTHER ==
[~2019-07-14] VITALS: Ht 180.3 cm; Wt 108.9 kg
[~2019-07-14 16:15] MED LIST changes: +ALBU0.0912 IH; -ALPR0.5T2 PO; +ALPR2TAB1 PO; +AUROBINDO PO; -BUS5 PO; +CALC-106 PO; +CARB100T PO; +CYAN100T65 PO; -DICL100T2 PO; +DIPH25TA53 PO; -DIPH50CA69 PO; +DOCU-299 PO; -FAMO-90 PO; +FISH10005 PO; -GABA100C PO; +GABA300C PO; +METF500T PO; +MIC5 PO; +MSCON15 PO; +OXYC30TA PO; +PHEN100C3 PO; -PHEN100C4 PO; +POTA10TE30 PO; +PRON INH; -SERT25TA PO; -TRAZ-343 PO; +[UNRECOGNIZED DRUG - CODE] PO
--- NOTE | 2019-07-14 16:20 | NUR ---
BIB WHEELCHAIR TO ER BED 5
[2019-07-14 16:24] VITALS: BP 136/92
--- NOTE | 2019-07-14 16:33 | NUR ---
39 Y/O MALE C/O CHEST PAIN X 3 DAYS WORSENING TODAY. PT STATES HE PASSED OUT ON SIDEWALK AND HIT BACK AND LT SHOULDER ON CONCRETE. STATES SOB. 9/10 PRESSURE, RADIATING TO BACK. STATES 2 EPISODES OF VOMITING AND NAUSEA S/P CHEST PAIN. NUMBNESS TO BILATERAL UPPER EXTREMITIES. RR EVEN AND UNLABORED. PT PLACED ON THE MONITOR. WILL CONTINUE TO MONITOR. MEDHX: CHF, CARDIAC DISORDER, HTN, COPD, SEIZURES
[2019-07-14] MEDS ORDERED: MORPHINE SULFATE 4 MG/ML SYR IVP ONE (16:45)
[2019-07-14] MEDS ORDERED: diphenhydrAMINE 50 MG/ML VIAL IVP ONE (16:45)
[2019-07-14] MEDS ORDERED: ONDANSETRON 4 MG/2 ML VIAL IVP ONE (16:45)
--- NOTE | 2019-07-14 17:19 | NUR ---
RADIOLOGY AT BEDSIDE
[2019-07-14 17:33] LABS: BASOPHILS % (AUTO) 0.4 % (0.0-2.0); EOSINOPHILS # (AUTO) 0.1 K/uL (0-0.4); EOSINOPHILS % (AUTO) 1.9 % (0.0-4.0); HEMATOCRIT 37.5 % (36-52); HEMOGLOBIN 11.6 g/dL (12.0-18.0); LYMPHOCYTES # (AUTO) 1.6 K/uL (2.0-11.5); LYMPHOCYTES % (AUTO) 44.1 % (20.5-51.1); MEAN CORPUSCULAR HEMOGLOBIN 24 pg (27-31); MEAN CORPUSCULAR HGB CONC 31 g/dL (33-37); MEAN CORPUSCULAR VOLUME 76.5 fL (80-94); MONOCYTES # (AUTO) 0.4 K/uL (0.8-1.0); MONOCYTES % (AUTO) 11.9 % (1.7-9.3); NEUTROPHILS # (AUTO) 1.6 K/uL (1.8-7.7); NEUTROPHILS % (AUTO) 41.7 % (42.2-75.2); PLATELET COUNT (AUTO) 92 K/uL (140-450); RED CELL DISTRIBUTION WIDTH 14.5 % (11.6-13.7); WHITE BLOOD COUNT (AUTO) 3.7 K/uL (4.8-10.8)
[2019-07-14 17:57] LABS: MAGNESIUM 2.1 mg/dL (1.8-2.4)
--- NOTE | 2019-07-14 18:01 | NUR ---
PT SITTING UPRIGHT, RR EVEN AND UNLABORED, CALM AND PLEASANT. VSS. WILL CONTINUE TO MONITOR
[2019-07-14 18:03] LABS: ALBUMIN 3.9 g/dL (3.4-5.0); ANION GAP 10.1 (8-16); CARBON DIOXIDE 32.5 mmol/L (21-32); POTASSIUM 3.6 mmol/L (3.5-5.1); TOTAL BILIRUBIN 0.2 mg/dL (0.0-1.0)
[2019-07-14] MEDS ORDERED: ONDANSETRON 4 MG/2 ML VIAL IM/IVP PRN (18:05)
[2019-07-14] MEDS ORDERED: DOCUSATE SODIUM 100 MG GELCAP PO PRN (18:05)
[2019-07-14 18:29] LABS: D-DIMER < 100 ng/ml (0-400)
[2019-07-14 18:30] LABS: PROTHROMBIN TIME 9.9 secs (10.8-13.4)
--- NOTE | 2019-07-14 18:50 | NUR ---
PT STATES UNABLE TO GIVE URINE
[2019-07-14] MEDS ORDERED: NACL 0.9% 1,000 ML IV SCH (19:00)
--- NOTE | 2019-07-14 19:11 | NUR ---
RECEIVED BESIDE REPORT FROM ED NURSE KIKO. PATIENT ARRIVED IN UNIT VIA GURNEY. PATIENT IS AMBULATORY. NO SOB OR DISTRESS NOTED. IV ACCESS ON RIGHT FOREARM 20 GAUGE, PATENT AND INTACT. PACEMAKER IN PLACE. MRSA SWAB DONE AND SENT TO LAB. PATIENT ORIENTED TO ROOM. INITIAL ASSESSMENT DONE. INITIAL VITAL SIGNS TAKEN. ON SEIZURE PRECAUTION. BED IN LOW, SAFETY MEASURES IN PLACE. CALL LIGHT PLACED WITHIN PATIENT REACH. WILL CONTINUE TO MONITOR PATIENT.
--- NOTE | 2019-07-14 19:17 | NUR ---
Patient will be admitted to care of DR SANDOVAL. Admited to TELE. Will go to room 105B. Belongings list completed. Report to LISA SOLANO.
[2019-07-14 19:44] LABS: ACETONE, SERUM NEGATIVE (NEGATIVE)
[2019-07-14 19:52] LABS: PHOSPHORUS 4.1 mg/dL (2.5-4.9); THYROID STIMULATING HORMONE 0.84 uIU/mL (0.34-3.74)
[2019-07-14] MEDS ORDERED: CARI350T PO (20:45)
[2019-07-14] MEDS ORDERED: ALPRAZolam 0.5 MG TAB PO PRN (20:50)
[2019-07-14] MEDS ORDERED: OXYCODONE HCL 30 MG PO SCH (20:50)
[2019-07-14] MEDS ORDERED: INSULIN LISPRO SLIDING SCALE 100 UNITS/ML VIAL SUBQ PRN (21:10)
[2019-07-14] MEDS ORDERED: ALBUTEROL SULFATE/IPRATROPIU 3 ML SOL IH PRN (21:10)
[2019-07-14] MEDS ORDERED: DEXTROSE 50% 50 ML SYR IVP PRN (21:10)
--- NOTE | 2019-07-14 21:30 | NUR ---
ROUNDS DONE. PATIENT LAYING ON BED WATCHING TV. CALL LIGHT PLACED WITHIN PATIENT REACH. WILL CONTINUE TO MONITOR PATIENT.
[2019-07-14] MEDS: levETIRAcetam 500 MG TAB PO SCH (21:58)
[2019-07-14] MEDS: GABAPENTIN 300 MG CAP PO SCH (21:59)
[2019-07-14] MEDS: POTASSIUM CHLORIDE 10 MEQ TABER PO SCH (21:59)
[2019-07-14] MEDS: PHENYTOIN 100 MG CAPER PO SCH (21:59)
[2019-07-14] MEDS: BENAZEPRIL 20 MG TAB PO SCH (21:59)
[2019-07-14] MEDS: metFORMIN 500 MG TAB PO SCH (21:59)
[2019-07-14] MEDS ORDERED: HYDROmorphone 1 MG/ML AMP IVP SCH (22:00)
[2019-07-14 22:04] LABS: IRON, SERUM 87 ug/dl (50-175); TOTAL IRON BINDING CAPACITY 286 ug/dl (250-450)
--- NOTE | 2019-07-15 00:10 | NUR ---
VITALS TAKEN AT THIS TIME. NO SOB OR DISTRESS NOTED. WILL CONTINUE TO MONITOR PATIENT.
[2019-07-15 00:34] LABS: APPEARANCE,URINE CLEAR (CLEAR); BILIRUBIN,URINE NEGATIVE (NEGATIVE); BLOOD, URINE NEGATIVE (NEGATIVE); COLOR,URINE YELLOW (YELLOW); LEUKOCYTE ESTERASE ,URINE NEGATIVE (NEGATIVE); NITRITE, URINE NEGATIVE (NEGATIVE); UGLUCOSE 1+ (NEGATIVE)
[2019-07-15 00:46] LABS: BARBITURATE, URINE NEG. ng/ml (NEG <=200); BENZODIAZEPINE, URINE POS. ng/mL (NEG <=200); CANNABINOID, URINE NEG. ng/mL (NEG <=50); COCAINE, URINE NEG. ng/mL (NEG <=300); OPIATE, URINE POS. ng/mL (NEG <=2000); PHENCYCLIDINE SCREEN,URINE NEG. ng/mL (NEG <=25)
[2019-07-15 01:07] LABS: PHENYTOIN (DILANTIN) 6.7 ug/ml (10.0-20.0)
[2019-07-15 01:08] LABS: VALPROIC ACID < 3 ug/ml (50-100)
[2019-07-15 02:46] LABS: RBC,URINE NONE SEEN /HPF (0-5); WBC,URINE NONE SEEN /HPF (0-5)
--- NOTE | 2019-07-15 04:10 | NUR ---
VITALS CHECKED AT THIS TIME. VISIBLE CHEST RISE AND FALL NOTED. WILL CONTINUE TO MONITOR PATIENT.
[2019-07-15 04:24] VITALS: BP 96/49
[2019-07-15] MEDS ORDERED: oxyCODONE 10 MG TABER PO PRN (05:35)
[2019-07-15] MEDS: PHENYTOIN 100 MG CAPER PO SCH ×3 (05:44→20:44)
[2019-07-15] MEDS: BLOOD GLUCOSE MONITORING 1 DEV DEV FS SCH ×4 (06:51→20:49)
--- NOTE | 2019-07-15 07:29 | NUR ---
PATIENT IN STABLE CONDITION. CALL LIGHT PLACED WITHIN PATIENT REACH. ENDORSED TO AM SHIFT NURSE FOR CONTINUITY OF CARE.
--- NOTE | 2019-07-15 07:30 | NUR ---
RECEIVED BED SIDE REPORT FROM NIGHT NURSE. PATIENT IS AWAKE, ALERT, ORIENTED X4, AND VERBALLY RESPONSIVE. IV INTACT AND PATENT TO RIGHT FOREARM. PATIENT WAS REPORTING THAT THE PAIN MEDICATION WAS NOT EFFECTIVE. EXPLAINED TO PATIENT THAT DR. CABRERA IS AWARE AND THEY WILL ASSESS HIM THIS AM. BED IN LOW POSITION. CALL LIGHT WITHIN REACH. PLANS OF CARE DISCUSSED.
[2019-07-15 07:48] LABS: CHOL/HDL RATIO 2.4 (1-4.5)
[2019-07-15 08:00] VITALS: BP 106/54
[2019-07-15] MEDS: GABAPENTIN 300 MG CAP PO SCH ×4 (08:34→20:46)
[2019-07-15] MEDS: POTASSIUM CHLORIDE 10 MEQ TABER PO SCH ×2 (08:35→20:44)
[2019-07-15] MEDS: FUROSEMIDE 40 MG TAB PO SCH (08:37)
[2019-07-15] MEDS: CARISOPRODOL 350 MG TAB PO SCH ×3 (08:37→17:56)
[2019-07-15] MEDS: levETIRAcetam 500 MG TAB PO SCH ×2 (08:37→20:45)
[2019-07-15] MEDS: metFORMIN 500 MG TAB PO SCH ×2 (08:38→20:44)
[2019-07-15] MEDS: BENAZEPRIL 20 MG TAB PO SCH ×2 (08:38→20:45)
[2019-07-15] MEDS: FAMOTIDINE 20 MG TAB PO SCH ×2 (08:39→20:46)
[2019-07-15] MEDS: HYDROCHLOROTHIAZIDE 25 MG TAB PO SCH (08:40)
--- NOTE | 2019-07-15 08:48 | NUR ---
PATIENT HAS BEEN SCREENED AND CATEGORIZED MODERATE NUTRITION RISK. PATIENT WILL BE SEEN WITHIN 3-5 DAYS OF ADMISSION. 07/17/19 07/19/[address]
--- NOTE | 2019-07-15 09:00 | NUR ---
PATIENT IS FREQUENTLY CALLING AND ASKING FOR EXTRA FOOD. EXPLAINED ABOUT HIS DIET RESTRICTIONS. PATIENT IS NON COMPLIANT. PATIENT FREQUENTLY ASKING FOR DILAUDID EXPLAINED TO PATIENT THAT THE MEDICATION WILL BE ORDERED BY [facility]. NO S/S OF DISTRESS NOTED.
[2019-07-15] MEDS: HYDROmorphone 1 MG/ML AMP IVP PRN ×3 (09:55→22:20)
--- NOTE | 2019-07-15 09:55 | NUR ---
DIALUDID 0.5MG GIVEN ORDERED PRN FOR REPORTS OF SEVERE PAIN ON THE MIDDLE CHEST AREA. WILL CONTINUE TO MONITOR. PATIENT IS AWAKE, AND VERBALLY RESPONSIVE. NO S/S OF DISTRESS NOTED.
--- NOTE | 2019-07-15 10:25 | NUR ---
PT OFF THE UNIT PICKED UP BY RADIOLOGY.
--- NOTE | 2019-07-15 10:36 | NUR ---
PT BACK IN BED IN THE ROOM. PATIENT REMAINS IN STABLE CONDITION. NO DISTRESS NOTED.
[2019-07-15 12:00] VITALS: BP 113/64
--- NOTE | 2019-07-15 12:10 | NUR ---
PATIENT WITH PIPE LINE MAINTENANCE SUPERVISOR.
--- NOTE | 2019-07-15 13:43 | NUR ---
PATIENT IS SITTING IN CHAIR EATING LUNCH. NO S/S OF DISTRESS NOTED. DENIES ANY PAIN OR DISCOMFORT. ALL NEEDS MET AT THIS TIME.
--- NOTE | 2019-07-15 15:40 | NUR ---
PATIENT IS AWAKE, ORIENTED X4. NO S/S OF DISTRESS NOTED. CALL LIGHT WITHIN REACH. ALL NEEDS MET AT THIS TIME.
[2019-07-15 16:00] VITALS: BP 112/76
--- NOTE | 2019-07-15 18:58 | NUR ---
PATIENT IS IN SITTING UP EATING DINNER. NO S/S OF DISTRESS NOTED. DENIES ANY PAIN OR DISCOMFORT. ALL NEEDS MET AT THIS TIME. WILL ENDORSE TO NIGHT NURSE FOR CONTINUITY OF CARE.
--- NOTE | 2019-07-15 19:30 | NUR ---
RECEIVED REPORT FROM DAYSSONIYAFT AT BEDSIDE FOR CONTINUITY OF CARE, PT IN STABLE CONDITION.
[2019-07-15 20:00] VITALS: BP 124/73
--- NOTE | 2019-07-15 20:00 | NUR ---
PT IN BED AOX4 WITH SKIN INTACT AND IV SITE; RIGHT F/A 20G INTACT AND ASYMPTOMATIC. IV SITE IS SALINE LOCKED AND FLUSHED PATENT. NO S/S OF PAIN OR DISTRESS NOTED. V/S FOLLOWS: T 98.0 P 68 R 18 B/P 93/60 02 965 ON ROOM AIR .
[2019-07-15] MEDS ORDERED: CRUSHER, PILL MC ONE (20:40)
[2019-07-15] MEDS ORDERED: glyBURIDE 5 MG TAB PO SCH (21:00)
--- NOTE | 2019-07-15 21:00 | NUR ---
PT IN BED FINGERSTICK IS 88, NO HUMALOG COVERAGE NEEDED. V/S FOLLOWS: T 97.4 P 73 R 18 B/P 124/73 02 100% ON ROOM AIR.
--- NOTE | 2019-07-15 22:30 | NUR ---
PT IN BED C/O SEVERE CHEST PAIN GIVEN ORDERED IVP/PRN DILAUDID IVP FOR 8/10 CHEST PAIN, HOWEVER NO SWEATING OR ANXIETY NOTED. PT BREATHING EVEN AND UNLABORED. PT C/O OF ALSO BEING HUNGRY AND WAS GIVEN A SNACK REQUESTED.
[2019-07-16] VITALS: BP 93/60
--- NOTE | 2019-07-16 | NUR ---
PT IN BED C/O OF ANXIETY, HE RECEIVED XANAX PO/PRN ORDERED. V/S FOLLOWS: T 98.0 P 68 R 18 B/P 95/60 02 96%.ALL [employer] [place] PRECAUTIONS IN PLACE IV SITE INTACT ANDS ASYMPTOMATIC, ALL REQUESTED NEEDS ATTENDED BY STAFF.
[2019-07-16 04:00] VITALS: BP 105/69
--- NOTE | 2019-07-16 04:00 | NUR ---
PT IN BED ASLEEP BUT AROUSABLE TO NAME AND LIGHT TOUCH. V/S FOLLOWS; T 98.0 P 60 R 18 B/P 105/69 02 94% ON ROOM AIR. NO S/S OF PAIN OR DISTRESS NOTED. ALL UNIVERS[employer] PRECAUTIONS IN PLACE.
--- NOTE | 2019-07-16 05:45 | NUR ---
PT FINGERSTIXK IS 56, PT GIVEN IVP DAXTROSE AND H2O. WILL CONTINUER CONTINUE TO MONITOR BLOOD GLUCOSE.
[2019-07-16] MEDS: PHENYTOIN 100 MG CAPER PO SCH ×2 (06:01→12:14)
[2019-07-16] MEDS: HYDROmorphone 1 MG/ML AMP IVP PRN ×2 (06:05→12:13)
[2019-07-16] MEDS: BLOOD GLUCOSE MONITORING 1 DEV DEV FS SCH ×2 (06:08→12:08)
[2019-07-16 07:02] LABS: BASOPHILS % (AUTO) 0.3 % (0.0-2.0); EOSINOPHILS % (AUTO) 0.5 % (0.0-4.0); HEMATOCRIT 44.1 % (36-52); HEMOGLOBIN 13.6 g/dL (12.0-18.0); LYMPHOCYTES # (AUTO) 1.2 K/uL (2.0-11.5); LYMPHOCYTES % (AUTO) 23.1 % (20.5-51.1); MEAN CORPUSCULAR HEMOGLOBIN 24 pg (27-31); MEAN CORPUSCULAR HGB CONC 31 g/dL (33-37); MEAN CORPUSCULAR VOLUME 78.3 fL (80-94); MONOCYTES # (AUTO) 0.4 K/uL (0.8-1.0); MONOCYTES % (AUTO) 7.5 % (1.7-9.3); NEUTROPHILS # (AUTO) 3.5 K/uL (1.8-7.7); NEUTROPHILS % (AUTO) 68.6 % (42.2-75.2); PLATELET COUNT (AUTO) 91 K/uL (140-450); RED BLOOD CELL COUNT(AUTO) 5.64 MIL/uL (4.20-6.10); RED CELL DISTRIBUTION WIDTH 14.7 % (11.6-13.7)
--- NOTE | 2019-07-16 07:15 | NUR ---
RECEIVED REPORT FROM LOAN REVIEW OFFICER NURSE CONNIE FOR CONTINUITY OF CARE. PT IN STABLE CONDITION. RESPIRATIONS EVEN AND UNLABORED. IV INTACT AND PATENT. SAFETY MEASURES IN PLACE. BED IN LOW POSITION. BED ALARM ON. CALL LIGHT AT BEDSIDE. WILL CONTINUE TO MONITOR.
[2019-07-16 07:33] LABS: ANION GAP 14.1 (8-16); CARBON DIOXIDE 27.1 mmol/L (21-32); CREATININE 0.8 mg/dL (0.7-1.3); POTASSIUM 4.2 mmol/L (3.5-5.1)
[2019-07-16] MEDS ORDERED: ALPRAZolam 0.5 MG TAB PO PRN (07:51)
[2019-07-16 08:00] VITALS: BP 104/60
[2019-07-16] MEDS: glyBURIDE 2.5 MG TAB PO SCH ×2 (08:00→08:56)
--- NOTE | 2019-07-16 08:26 | NUR ---
ORDERED MORE OATMEAL FROM [facility] PER PT REQUEST.
[2019-07-16 08:43] LABS: MAGNESIUM 2.3 mg/dL (1.8-2.4); PHOSPHORUS 3.2 mg/dL (2.5-4.9)
[2019-07-16] MEDS: POTASSIUM CHLORIDE 10 MEQ TABER PO SCH (08:57)
[2019-07-16] MEDS: FAMOTIDINE 20 MG TAB PO SCH (08:57)
[2019-07-16] MEDS: BENAZEPRIL 20 MG TAB PO SCH ×2 (08:57→09:00)
[2019-07-16] MEDS: levETIRAcetam 500 MG TAB PO SCH (08:57)
[2019-07-16] MEDS: CARISOPRODOL 350 MG TAB PO SCH ×2 (08:58→12:14)
[2019-07-16] MEDS: HYDROCHLOROTHIAZIDE 25 MG TAB PO SCH (08:58)
[2019-07-16] MEDS: FUROSEMIDE 40 MG TAB PO SCH (08:58)
[2019-07-16] MEDS: GABAPENTIN 300 MG CAP PO SCH ×2 (08:58→12:14)
[2019-07-16] MEDS: metFORMIN 500 MG TAB PO SCH (08:59)
[2019-07-16] MEDS ORDERED: carBAMazepine 200 MG TAB PO SCH (09:00)
[2019-07-16 09:06] LABS: TRANSFERRIN 213 mg/dL (200-370)
--- NOTE | 2019-07-16 09:20 | NUR ---
DISCHARGE PLANNING: RECEIVED OLD RECORDS FROM [facility]. DR. FRANK MADE AWARE. PER THE RECORD IT IS NOT AN AICD BUT A PACEMAKER BY [facility] [phone]. CONTACTED THE NUMBER, ABLE TO SPEAK TO SHABNAMLEONARDO CRUZ. SHE STATED THE REP IN THE AREA IS ANGELA BLAKELY AND WILL SEND HIM A MESSAGE TO CALL ME BACK. PROVIDED HER OF MY CONTACT INFO. Addendum: 07/16/19 at 1042 by Nasrin Cooper CM RECEIVED A CALL FROM ANGELA BLAKELY [phone] [facility], HE STATED HE WILL NOT BE COMING OVER TO INTERROGATE THE PACEMAKER. HE ALSO STATED THAT HE HAVE KNOWN THIS PATIENT FOR SO MANY YEARS AND PATIENT'S REAL NAME IS SALTY THOMPSON AND HE IS FROM [place] AND HE EXHAUSTED ALL THE HOSPITALS IN THERE AND THAT IS WHY HE IS COMING DOWN HERE. HE ALSO STATED THAT THE PATIENT WAS IN [facility] [place] AND HE RECEIVED A CALL WELL. HE ALSO CONFIRMED THAT PATIENT DOES NOT HAVE AN AICD AND THERE IS NO REASON FOR IT TO SHOCK HIM. DR. FRANK MADE AWARE.
--- NOTE | 2019-07-16 10:33 | NUR ---
PT SITTING UP IN BED WATCHING TV. RESPIRATIONS EVEN AND UNLABORED. BED IN LOW POSITION. CALL LIGHT AT BEDSIDE. WILL CONTINUE TO MONITOR.
[2019-07-16] MEDS ORDERED: MIC5 PO (10:52)
[2019-07-16] MEDS ORDERED: LEVE500T18 PO (10:52)
[2019-07-16] MEDS ORDERED: CLOP75TA55 PO (10:52)
[2019-07-16] MEDS ORDERED: GABA300C PO (10:52)
[2019-07-16] MEDS ORDERED: PHEN100C3 PO (10:52)
[2019-07-16] MEDS ORDERED: FURO-570 PO (10:52)
[2019-07-16] MEDS ORDERED: ORE25 PO (10:52)
[2019-07-16] MEDS ORDERED: BENA20TA PO (10:52)
[2019-07-16] MEDS ORDERED: METF500T PO (10:52)
[2019-07-16 12:00] VITALS: BP 110/73
--- NOTE | 2019-07-16 12:28 | NUR ---
ORDERED FROM [facility] PER PT REQUEST. PT DID NOT WANT THE LUNCH TRAY. PT IN STABLE CONDITION.
--- NOTE | 2019-07-16 14:10 | NUR ---
GAVE DISCHARGE INSTRUCTIONS PT VERBALIZED UNDERSTANDING. REMOVED IV, LUMEN INTACT. REMOVED ID BAND. PT WHEELED TO LOBBY WHERE ELECTRONIC WARFARE TECHNICIAN WAS WAITING TO TAKE PT HOME. PT IN STABLE CONDITION.
[2019-07-16 15:06] LABS: FERRITIN 111 ng/mL (30-400); FOLIC ACID > 20.00 ng/mL (>3.0)
[2019-07-17] MEDS ORDERED: CLOPIDOGREL 75 MG TAB PO SCH (09:00)
== END 2019-07-16 14:10 | disposition home or self-care (01) | DRG 203 ==
LOC: MED 16:15 → MTU 18:11
PROVIDERS: ADMIT General Practice; ATTEND General Practice
PROC: 4A00X4Z Measurement of Central Nervous Electrical Activity, External Approach (ICD-10-PCS; principal; 2019-07-15)
DX: M94.0 Chondrocostal junction syndrome [Tietze] (principal); I11.0 Hypertensive heart disease with heart failure; Z93.0 Tracheostomy status; I50.9 Heart failure, unspecified; F11.20 Opioid dependence, uncomplicated; I69.354 Hemiplegia and hemiparesis following cerebral infarction affecting left non-dominant side; E11.9 Type 2 diabetes mellitus without complications; D63.8 Anemia in other chronic diseases classified elsewhere; E78.5 Hyperlipidemia, unspecified; J44.9 Chronic obstructive pulmonary disease, unspecified; K21.9 Gastro-esophageal reflux disease without esophagitis; G40.909 Epilepsy, unspecified, not intractable, without status epilepticus; G89.4 Chronic pain syndrome; I25.10 Atherosclerotic heart disease of native coronary artery without angina pectoris; F41.9 Anxiety disorder, unspecified; Z85.028 Personal history of other malignant neoplasm of stomach; Z88.6 Allergy status to analgesic agent; Z88.8 Allergy status to other drugs, medicaments and biological substances; I25.2 Old myocardial infarction; Z95.810 Presence of automatic (implantable) cardiac defibrillator; Z95.5 Presence of coronary angioplasty implant and graft; Z79.899 Other long term (current) drug therapy; Z83.3 Family history of diabetes mellitus; Z82.3 Family history of stroke; Z80.3 Family history of malignant neoplasm of breast; Z80.42 Family history of malignant neoplasm of prostate; Z80.0 Family history of malignant neoplasm of digestive organs; Z91.14 Patient's other noncompliance with medication regimen
CPT/HCPCS: 36415; 36600; 70450; 71045; 76604; 80048; 80053; 80156; 80185; 80305; 81001; 82009; 82140; 82150; 82607; 82728; 82746; 82803; 82948; 83036; 83540; 83605; 83615; 83690; 83735; 83880; 84100; 84134; 84443; 84484; 85025; 85045; 85379; 85610; 85730; 87040; 87081; 93005; 93970; 96374; 96375; 99285; G0482; J1170; J1200; J1815; J2270; J2405; J7030; Q0092

== ENCOUNTER 2022-09-05 16:15 | Inpatient (IN) | payer OTHER ==
[~2022-09-05] VITALS: Ht 185.4 cm; Wt 95.3 kg
[~2022-09-05 16:15] MED LIST changes: -AUROBINDO PO; -CARB100T PO; +CARI350T PO; +CLOP-68 PO; -CYAN100T65 PO; +HYDR-4004 PO; +KEP500 PO; +METF-346 PO; -METF500T PO; -MIC5 PO; -MSCON15 PO; -ORE25 PO; -OXYC60TE PO; +POTA10CE86 PO; +POTA10TA70 PO; -POTA10TE30 PO; +VITB12 PO
[2022-09-05 16:20] VITALS: BP_SYST 120; BP_SYST 145; BP_DIAS 84; BP_DIAS 99
--- NOTE | 2022-09-05 16:29 | NUR ---
BIBA FOR CHEST PAIN (03/03), SOB X 3 DAYS, AICD IS RANDOMLY FIRING. PMH: HTN, AICD, HLD, CHF.
--- NOTE | 2022-09-05 16:37 | NUR ---
DR WATERMAN AT BEDSIDE.
[2022-09-05] MEDS ORDERED: ONDANSETRON 4 MG/2 ML VIAL IVP ONE (16:40)
[2022-09-05] MEDS ORDERED: MORPHINE SULFATE 4 MG/ML SYR IVP ONE ×2 (16:40→18:00)
--- NOTE | 2022-09-05 16:48 | NUR ---
42 Y/O M BIBA FOR CHEST PAIN 03/03, SOB X 3 DAYS, AICD IS RANDOMLY FIRING. ALLERGIES:ACETAMINOPHEN, ASPIRIN, HYDROCODONE, KETOROLAC, TRAMADOL,NITROGLYCERIN PMH: HTN, AICD, HLD, CHF
[2022-09-05 17:00] LABS: BASOPHILS % (AUTO) 0.5 % (0.0-2.0); EOSINOPHILS % (AUTO) 0.3 % (0.0-4.0); HEMATOCRIT 40.7 % (36-52); HEMOGLOBIN 12.8 g/dL (12.0-18.0); LYMPHOCYTES # (AUTO) 1.4 K/uL (2.0-11.5); LYMPHOCYTES % (AUTO) 22.9 % (20.5-51.1); MEAN CORPUSCULAR HEMOGLOBIN 24 pg (27-31); MEAN CORPUSCULAR HGB CONC 31 g/dL (33-37); MEAN CORPUSCULAR VOLUME 76.9 fL (80-94); MONOCYTES # (AUTO) 0.5 K/uL (0.8-1.0); MONOCYTES % (AUTO) 8.5 % (1.7-9.3); NEUTROPHILS # (AUTO) 4.3 K/uL (1.8-7.7); NEUTROPHILS % (AUTO) 67.8 % (42.2-75.2); PLATELET COUNT (AUTO) 118 K/uL (140-450); RED BLOOD CELL COUNT(AUTO) 5.29 MIL/uL (4.20-6.10); WHITE BLOOD COUNT (AUTO) 6.3 K/uL (4.8-10.8)
[2022-09-05 17:23] LABS: PROTHROMBIN TIME 10.6 secs (10.8-13.4)
--- NOTE | 2022-09-05 17:24 | NUR ---
X-RAY AT BEDSIDE.
[2022-09-05 17:26] LABS: MAGNESIUM 1.9 mg/dL (1.8-2.4); PHOSPHORUS 3.5 mg/dL (2.5-4.9)
[2022-09-05 17:27] LABS: ALBUMIN 4.3 g/dL (3.4-5.0); ANION GAP 11.1 (8-16); CARBON DIOXIDE 26.6 mmol/L (21-32); CREATININE 0.9 mg/dL (0.6-1.3); POTASSIUM 3.7 mmol/L (3.5-5.1); TOTAL BILIRUBIN 0.2 mg/dL (0.0-1.0)
--- NOTE | 2022-09-05 18:06 | NUR ---
LAB AT BEDSIDE.
[2022-09-05] MEDS ORDERED: diphenhydrAMINE 50 MG CAP PO ONE (18:30)
--- NOTE | 2022-09-05 19:18 | NUR ---
GAVE REPORT TO SHANNA STRONG.
--- NOTE | 2022-09-05 19:45 | NUR ---
PT REQUESTING TO BE MOVED TO HIS ROOM DELMI, PT STATED HE IS CLAUSTROPHOBIC AND WANTS THE CURTAIN OPEN. PT STATED HIS PAIN IS 2/10 AT THE MOMENT
[2022-09-05] MEDS ORDERED: ONDANSETRON 4 MG/2 ML VIAL IM/IVP PRN (19:55)
[2022-09-05] MEDS ORDERED: DOCUSATE SODIUM 100 MG GELCAP PO PRN (19:55)
[2022-09-05] MEDS ORDERED: guaiFENesin DM 200/20 MG-10 ML 10 ML UDC PO PRN (19:55)
[2022-09-05] MEDS: NACL 0.9% 1,000 ML IV SCH (19:55)
[2022-09-05] MEDS ORDERED: POTASSIUM CHLORIDE 10 MEQ TABER PO PRN (19:55)
[2022-09-05] MEDS ORDERED: ZOLPIDEM 5 MG TAB PO PRN (19:55)
--- NOTE | 2022-09-05 19:59 | NUR ---
LAB AT BEDSIDE
[2022-09-05] MEDS ORDERED: ALBUTEROL 0.083% 2.5 MG/3 ML NEBU INH PRN (20:00)
[2022-09-05] MEDS ORDERED: ALPRAZolam 0.5 MG TAB PO PRN (20:00)
[2022-09-05 20:24] LABS: PROTHROMBIN TIME 10.6 secs (10.8-13.4)
[2022-09-05 20:35] LABS: CHOL/HDL RATIO 2.1 (1-4.5); FREE T4 (FREE THYROXINE) 0.74 ng/dL (0.76-1.46); MAGNESIUM 1.7 mg/dL (1.8-2.4); PHOSPHORUS 4.3 mg/dL (2.5-4.9); THYROID STIMULATING HORMONE 0.63 uIU/mL (0.34-3.74)
[2022-09-05] MEDS: metFORMIN 500 MG TAB PO SCH (20:37)
--- NOTE | 2022-09-05 20:39 | NUR ---
PT CONTINUING TO ASK FOR A ROOM, PT REMINDED THE PROCESS TAKES TIME
[2022-09-05] MEDS: BENAZEPRIL 20 MG TAB PO SCH (20:49)
[2022-09-05] MEDS: levETIRAcetam 500 MG TAB PO SCH (20:50)
[2022-09-05] MEDS: GABAPENTIN 300 MG CAP PO SCH (20:50)
[2022-09-05] MEDS: CLOPIDOGREL 75 MG TAB PO SCH (20:51)
[2022-09-05] MEDS: METOPROLOL 25 MG TAB PO SCH (20:52)
[2022-09-05] MEDS ORDERED: MORPHINE SULFATE 2 MG/ML SYR ONE (21:53)
--- NOTE | 2022-09-05 22:00 | NUR ---
PT CONTINUING TO ASK FOR A ROOM AND PAIN MEDICATION. PT REMINDED PAIN MEDICATION IS GIVEN Q6HR
[2022-09-05] MEDS: MORPHINE SULFATE 2 MG/ML SYR IVP PRN (23:56)
--- NOTE | 2022-09-06 00:45 | NUR ---
PT CONTINUING TO ASK FOR A ROOM AND PAIN MEDICATION.
--- NOTE | 2022-09-06 01:45 | NUR ---
PT CONTINUING TO ASK FOR PAIN MEDICATION AND A ROOM FOR ADMIT
--- NOTE | 2022-09-06 02:30 | NUR ---
PT CONTINUING TO ASK FOR PAIN MEDICATION AND AN ADMIT ROOM
--- NOTE | 2022-09-06 04:15 | NUR ---
PT CONTINUING TO ASK FOR PAIN MEDICATION AND AN ADMITTING ROOM
--- NOTE | 2022-09-06 05:42 | NUR ---
PT CONTINUING TO ASK FOR A ROOM
[2022-09-06 05:44] LABS: BASOPHILS % (AUTO) 0.3 % (0.0-2.0); EOSINOPHILS % (AUTO) 0.9 % (0.0-4.0); HEMATOCRIT 37.2 % (36-52); HEMOGLOBIN 11.8 g/dL (12.0-18.0); LYMPHOCYTES # (AUTO) 1.7 K/uL (2.0-11.5); LYMPHOCYTES % (AUTO) 30.9 % (20.5-51.1); MEAN CORPUSCULAR HEMOGLOBIN 24 pg (27-31); MEAN CORPUSCULAR HGB CONC 32 g/dL (33-37); MEAN CORPUSCULAR VOLUME 76.1 fL (80-94); MONOCYTES # (AUTO) 0.6 K/uL (0.8-1.0); MONOCYTES % (AUTO) 11.3 % (1.7-9.3); NEUTROPHILS # (AUTO) 3.1 K/uL (1.8-7.7); NEUTROPHILS % (AUTO) 56.6 % (42.2-75.2); PLATELET COUNT (AUTO) 115 K/uL (140-450); RED BLOOD CELL COUNT(AUTO) 4.88 MIL/uL (4.20-6.10); RED CELL DISTRIBUTION WIDTH 14.6 % (11.6-13.7); WHITE BLOOD COUNT (AUTO) 5.5 K/uL (4.8-10.8)
[2022-09-06 06:27] LABS: CARBON DIOXIDE 27.7 mmol/L (21-32); CREATININE 0.8 mg/dL (0.6-1.3); POTASSIUM 3.7 mmol/L (3.5-5.1)
--- NOTE | 2022-09-06 07:35 | NUR ---
Pt report given to KAUSHIK STRONG. Transfer of care at this time.
--- NOTE | 2022-09-06 07:36 | NUR ---
REPORT RECEIVED FROM SHANNA STRONG. ASSUMED CARE AT THIS TIME
--- NOTE | 2022-09-06 07:56 | NUR ---
Patient will be admitted to care of MD MELLO . Admited to TELE. Will go to room 11B. Belongings list completed. Report to BOB GONZALEZ.
[2022-09-06 08:08] LABS: T4 (THYROXINE) 5.2 ug/dL (4.5-12.0)
[2022-09-06 08:10] VITALS: BP 120/71
--- NOTE | 2022-09-06 08:20 | NUR ---
PT ARRIVED TO [facility] ON 814. RECEIVED REPORT FROM ER NURSE. PT IS AAOX4, ON ROOM AIR, IV 22G TO LEFT FOREARM, PT AMBULATORY. SHOWS NO SIGNS OF DISTRESS VITAL SIGNS (T: 98.2, P: 75, BP: 111/73, RR: 18, O2: 99%) REPORTS PAIN 9/10 IN CHEST AREA AND REQUESTS PAIN MEDICATION. NON PHARMACOLOGICAL INTERVENTIONS INEFFECTIVE WILL ADMINISTER PAIN MEDICATION AND CONTINUE TO MONITOR.
--- NOTE | 2022-09-06 08:30 | NUR ---
PT REPORTS FEELING ITCHY AFTER MORPHINE ADMINISTRATION. DR MELLO AT BEDSIDE AND ORDERS BENADRYL IV 25MG TO BE GIVEN BID.
[2022-09-06] MEDS: BENAZEPRIL 20 MG TAB PO SCH ×2 (08:33→20:08)
[2022-09-06] MEDS: MORPHINE SULFATE 2 MG/ML SYR IVP PRN ×2 (08:33→16:36)
[2022-09-06] MEDS: hydroCHLOROthiazide 25 MG TAB PO SCH (08:33)
[2022-09-06] MEDS: carisoprodoL 350 MG TAB PO SCH ×3 (08:34→17:14)
[2022-09-06] MEDS: metFORMIN 500 MG TAB PO SCH ×2 (08:34→20:07)
[2022-09-06] MEDS: METOPROLOL 25 MG TAB PO SCH ×2 (08:34→20:08)
[2022-09-06] MEDS: CLOPIDOGREL 75 MG TAB PO SCH (08:35)
[2022-09-06] MEDS: GABAPENTIN 300 MG CAP PO SCH ×3 (08:35→17:15)
[2022-09-06] MEDS: levETIRAcetam 500 MG TAB PO SCH ×2 (08:35→20:07)
[2022-09-06] MEDS: PANTOPRAZOLE 40 MG TABEC PO SCH (08:35)
[2022-09-06] MEDS: diphenhydrAMINE 50 MG/ML VIAL IVP PRN ×2 (09:54→16:09)
[2022-09-06 12:00] VITALS: BP 129/84
[2022-09-06 12:29] LABS: APPEARANCE,URINE CLEAR (CLEAR); BILIRUBIN,URINE NEGATIVE (NEGATIVE); BLOOD, URINE NEGATIVE (NEGATIVE); COLOR,URINE YELLOW (YELLOW); LEUKOCYTE ESTERASE ,URINE NEGATIVE (NEGATIVE); NITRITE, URINE NEGATIVE (NEGATIVE); UGLUCOSE NEGATIVE (NEGATIVE)
[2022-09-06] MEDS: NACL 0.9% 1,000 ML IV SCH (13:19)
[2022-09-06 13:34] LABS: BARBITURATE, URINE POSITIVE ng/ml (NEG <=200); BENZODIAZEPINE, URINE NEGATIVE ng/mL (NEG <=200); CANNABINOID, URINE NEGATIVE ng/mL (NEG <=50); COCAINE, URINE NEGATIVE ng/mL (NEG <=300); OPIATE, URINE POSITIVE ng/mL (NEG <=2000); PHENCYCLIDINE SCREEN,URINE NEGATIVE ng/mL (NEG <=25)
[2022-09-06 16:00] VITALS: BP 109/60
[2022-09-06] MEDS ORDERED: ATORVASTATIN 20 MG TAB PO SCH (17:00)
--- NOTE | 2022-09-06 19:30 | NUR ---
RECEIVED REPORT FROM DAY SHIFT RN FOR CONTINUITY OF CARE. PT IS AAOX4. AMBULATORY. PT IS ON RA NOT IN ANY DISTRESS. POC DISCUSSED. WILL CONTINUE TO MONITOR THE PT.
[2022-09-06 20:00] VITALS: BP 103/65
--- NOTE | 2022-09-06 20:07 | NUR ---
SCHEDULE MEDICATIONS GIVEN. NO ADVERSE REACTION NOTED. WILL CONTINUE TO MONITOR THE PT.
--- NOTE | 2022-09-07 00:40 | NUR ---
CHECKED ON PT. PT IS SLEEPING COMFORTABLY IN BED. NOT IN ANY DISTRESS. WILL CONTINUE TO MONITOR THE PT.
[2022-09-07] MEDS: MORPHINE SULFATE 2 MG/ML SYR IVP PRN (01:47)
[2022-09-07] MEDS: diphenhydrAMINE 50 MG/ML VIAL IVP PRN (01:48)
--- NOTE | 2022-09-07 02:00 | NUR ---
PT COMPLAINED OF CHEST PAIN RADIATING TO JAW. 01/31. MORPHINE WAS GIVEN.
--- NOTE | 2022-09-07 02:04 | NUR ---
PT STATES HE WANTS A BREAK FROM THE IV FLUIDS. PT KEPT ON CHANGING RATE AND PAUSING THE IV MACHINE EVEN THOUGH EDUCATED PT NOT TO TOUCH AND CHANGE THE SETTINGS ON THE IV PUMP. PT WAS DISCONNECTED AND REFUSED IVF AT THIS TIME.
[2022-09-07 04:00] VITALS: BP 113/68
--- NOTE | 2022-09-07 05:00 | NUR ---
PT ASKED FOR SNACKS AND PROVIDED. PT REFUSED TO BE CONNECTED TO IVF.
[2022-09-07] MEDS: NACL 0.9% 1,000 ML IV SCH (05:15)
--- NOTE | 2022-09-07 07:20 | NUR ---
ENDORSED PT TO DAY SHIFT RN FOR CONTINUITY OF CARE. PT IS STABLE.
--- NOTE | 2022-09-07 07:25 | NUR ---
RECEIVED PT FROM MANAGER MACHINE NURSE FOR CONTINUITY OF CARE. PT IN BED AWAKE AOX4, ABLE TO VERBALIZE NEEDS. RESPIRATIONS EVEN AND UNLABORED ON RA. NO DISTRESS NOTED. CALL LIGHT WITHIN REACH. ALL SAFETY PRECAUTIONS IN PLACE.
[2022-09-07 07:41] LABS: ANION GAP 10.7 (8-16); BASOPHILS % (AUTO) 0.3 % (0.0-2.0); CREATININE 0.7 mg/dL (0.6-1.3); EOSINOPHILS # (AUTO) 0.1 K/uL (0-0.4); EOSINOPHILS % (AUTO) 1.2 % (0.0-4.0); HEMATOCRIT 38.1 % (36-52); HEMOGLOBIN 12.2 g/dL (12.0-18.0); LYMPHOCYTES # (AUTO) 1.9 K/uL (2.0-11.5); LYMPHOCYTES % (AUTO) 35.6 % (20.5-51.1); MEAN CORPUSCULAR HEMOGLOBIN 24 pg (27-31); MEAN CORPUSCULAR HGB CONC 32 g/dL (33-37); MEAN CORPUSCULAR VOLUME 76.4 fL (80-94); MONOCYTES # (AUTO) 0.7 K/uL (0.8-1.0); MONOCYTES % (AUTO) 12.2 % (1.7-9.3); NEUTROPHILS # (AUTO) 2.8 K/uL (1.8-7.7); NEUTROPHILS % (AUTO) 50.7 % (42.2-75.2); PLATELET COUNT (AUTO) 119 K/uL (140-450); POTASSIUM 3.7 mmol/L (3.5-5.1); RED BLOOD CELL COUNT(AUTO) 4.99 MIL/uL (4.20-6.10); RED CELL DISTRIBUTION WIDTH 14.6 % (11.6-13.7); WHITE BLOOD COUNT (AUTO) 5.4 K/uL (4.8-10.8)
[2022-09-07 08:00] VITALS: BP 119/74
--- NOTE | 2022-09-07 08:00 | NUR ---
Patient's Plan of Care was discussed and reviewed with LIGIA: PHILIP
[2022-09-07] MEDS: GABAPENTIN 300 MG CAP PO SCH ×2 (09:11→12:45)
[2022-09-07] MEDS: METOPROLOL 25 MG TAB PO SCH (09:12)
[2022-09-07] MEDS: BENAZEPRIL 20 MG TAB PO SCH (09:13)
[2022-09-07] MEDS: levETIRAcetam 500 MG TAB PO SCH (09:13)
[2022-09-07] MEDS: PANTOPRAZOLE 40 MG TABEC PO SCH (09:13)
[2022-09-07] MEDS: metFORMIN 500 MG TAB PO SCH (09:14)
[2022-09-07] MEDS: CLOPIDOGREL 75 MG TAB PO SCH (09:14)
[2022-09-07] MEDS: carisoprodoL 350 MG TAB PO SCH ×2 (09:14→12:45)
[2022-09-07] MEDS: hydroCHLOROthiazide 25 MG TAB PO SCH (09:16)
--- NOTE | 2022-09-07 10:25 | NUR ---
PATIENT HAS BEEN SCREENED AND CATEGORIZED MODERATE NUTRITION RISK. PATIENT WILL BE SEEN WITHIN 3-5 DAYS OF ADMISSION. R[address]
[2022-09-07] MEDS ORDERED: MORP15TE33 PO (10:53)
[2022-09-07] MEDS ORDERED: BENA20TA PO (11:04)
[2022-09-07] MEDS ORDERED: METF-346 PO (11:04)
[2022-09-07] MEDS ORDERED: CLOP-68 PO (11:04)
[2022-09-07] MEDS ORDERED: LEVE500T18 PO (11:04)
[2022-09-07] MEDS ORDERED: PHEN100C3 PO (11:04)
[2022-09-07] MEDS ORDERED: FURO-570 PO (11:04)
[2022-09-07 12:10] VITALS: BP 119/74
--- NOTE | 2022-09-07 13:20 | NUR ---
DC PACKET REVIEWED WITH PT. ALL BELONGINGS GATHERED, IV AND NAME BAND REMOVED. PT AMBULATED TO [facility], GOT ON VEHICLE SAFELY. PT IN STABLE CONDITION. DC TO HOME.
== END 2022-09-07 13:00 | disposition home or self-care (01) | DRG 190 ==
LOC: MED 16:15 → MTU 19:32 → OBSVTOIN 09-06 12:18
PROVIDERS: ADMIT Family Medicine; ATTEND Family Medicine
DX: R07.89 Other chest pain (principal); I21.A1 Myocardial infarction type 2; E87.1 Hypo-osmolality and hyponatremia; E83.51 Hypocalcemia; E87.8 Other disorders of electrolyte and fluid balance, not elsewhere classified; D64.9 Anemia, unspecified; I25.10 Atherosclerotic heart disease of native coronary artery without angina pectoris; E78.2 Mixed hyperlipidemia; J45.909 Unspecified asthma, uncomplicated; I11.0 Hypertensive heart disease with heart failure; I50.9 Heart failure, unspecified; Z20.822 Contact with and (suspected) exposure to COVID-19; G40.909 Epilepsy, unspecified, not intractable, without status epilepticus; Z83.3 Family history of diabetes mellitus; Z95.810 Presence of automatic (implantable) cardiac defibrillator; Z88.6 Allergy status to analgesic agent; Z88.1 Allergy status to other antibiotic agents; Z88.0 Allergy status to penicillin; Z88.8 Allergy status to other drugs, medicaments and biological substances; Z79.899 Other long term (current) drug therapy; I25.2 Old myocardial infarction; Z82.3 Family history of stroke; Z80.42 Family history of malignant neoplasm of prostate; Z80.0 Family history of malignant neoplasm of digestive organs
CPT/HCPCS: 96374; 96375; 96376; 99285; G0378; 36415; 71045; 80048; 80053; 80305; 81003; 82150; 82948; 83036; 83690; 83735; 83880; 84100; 84436; 84439; 84443; 84479; 84484; 85025; 85610; 85730; 87081; J1200; J2270; J2405; Q0163

== ENCOUNTER 2023-07-04 14:52 | Observation (INO) | payer OTHER ==
[~2023-07-04] VITALS: Ht 193 cm; Wt 103.9 kg
[~2023-07-04 14:52] MED LIST changes: -ALBU0.0912 IH; -CALC-106 PO; -CLOP75TA55 PO; -DIPH25TA53 PO; -DOCU-299 PO; -FISH10005 PO; -HYDR-4004 PO; -KEP500 PO; +MORP15TE33 PO; -OXYC30TA PO; +POTA10CA28 PO; -POTA10CE86 PO; -VITB12 PO; -[UNRECOGNIZED DRUG - CODE] PO
[2023-07-04 15:18] VITALS: BP 132/82; PULSE 95; RESP 16; TEMP 98.5; O2SAT 98
[2023-07-04 15:44] LABS: BASOPHILS % (AUTO) 0.8 % (0.0-2.0); EOSINOPHILS # (AUTO) 0.1 K/uL (0-0.4); EOSINOPHILS % (AUTO) 1.3 % (0.0-4.0); HEMATOCRIT 38.8 % (36-52); HEMOGLOBIN 12.6 g/dL (12.0-18.0); LYMPHOCYTES # (AUTO) 1.6 K/uL (2.0-11.5); LYMPHOCYTES % (AUTO) 30.8 % (20.5-51.1); MEAN CORPUSCULAR HEMOGLOBIN 25 pg (27-31); MEAN CORPUSCULAR HGB CONC 33 g/dL (33-37); MEAN CORPUSCULAR VOLUME 75.9 fL (80-94); MONOCYTES # (AUTO) 0.6 K/uL (0.8-1.0); MONOCYTES % (AUTO) 12.4 % (1.7-9.3); NEUTROPHILS # (AUTO) 2.8 K/uL (1.8-7.7); NEUTROPHILS % (AUTO) 54.7 % (42.2-75.2); PLATELET COUNT (AUTO) 116 K/uL (140-450); RED BLOOD CELL COUNT(AUTO) 5.11 MIL/uL (4.20-6.10); RED CELL DISTRIBUTION WIDTH 14.3 % (11.6-13.7); WHITE BLOOD COUNT (AUTO) 5.2 K/uL (4.8-10.8)
[2023-07-04] MEDS ORDERED: MORPHINE SULFATE 4 MG/ML SYR IM ONE (15:55)
[2023-07-04 16:01] LABS: ALANINE AMINOTRANSFERASE 67 U/L (12-78); ALBUMIN 3.6 g/dL (3.4-5.0); ALKALINE PHOSPHATASE 97 U/L (50-136); ASPARTATE AMINOTRANSFERASE 54 U/L (15-37); CARBON DIOXIDE 30.9 mmol/L (21-32); CHLORIDE 99 mmol/L (98-107); CREATININE 0.9 mg/dL (0.6-1.3); GFR ARICAN-AMERICAN 118 mL/min (>90); GFR NON ARICAN-AMERICAN 97 mL/min (>90); GLUCOSE 102 mg/dL (74-106); POTASSIUM 3.9 mmol/L (3.5-5.1); SODIUM SERUM 138 mmol/L (136-145); TOTAL BILIRUBIN 0.2 mg/dL (0.0-1.0); TOTAL PROTEIN, SERUM 8.7 g/dL (6.4-8.2); UREA NITROGEN, BLOOD 12 mg/dL (7-18)
[2023-07-04] MEDS ORDERED: MORPHINE SULFATE 4 MG/ML SYR IVP ONE (20:20)
[2023-07-04] MEDS ORDERED: LID5T TP (21:24)
[2023-07-04] MEDS ORDERED: LORazepam 2 MG/ML VIAL IVP ONE (22:05)
[2023-07-05] MEDS ORDERED: ACETAMINOPHEN 325 MG TAB PO PRN (00:05)
[2023-07-05] MEDS ORDERED: NITROGLYCERIN 0.4 MG TAB SL PRN (00:05)
[2023-07-05] MEDS ORDERED: HYDROcodone/APAP 5/325 MG 1 TAB TAB PO PRN (00:05)
[2023-07-05] MEDS ORDERED: ONDANSETRON 4 MG/2 ML VIAL IVP PRN (00:05)
[2023-07-05] MEDS: MORPHINE SULFATE 2 MG/ML SYR IVP PRN ×5 (03:54→21:29)
[2023-07-05] MEDS: LORazepam 2 MG/ML VIAL IVP PRN ×4 (03:58→23:58)
[2023-07-05] MEDS: ENOXAPARIN 40 MG/0.4 ML SYR SUBQ SCH (08:11)
[2023-07-05] MEDS: METOPROLOL 25 MG TAB PO SCH ×2 (10:26→20:15)
[2023-07-05] MEDS ORDERED: levETIRAcetam 500 MG TAB ONE (12:03)
[2023-07-05] MEDS: carisoprodoL 350 MG TAB PO SCH ×2 (12:05→18:04)
[2023-07-05] MEDS: levETIRAcetam 500 MG TAB PO SCH ×2 (12:06→20:17)
[2023-07-05] MEDS: PHENYTOIN 100 MG CAPER PO SCH ×2 (12:06→18:05)
[2023-07-05] MEDS ORDERED: oxyCODONE 40 MG TABER PO SCH (13:00)
[2023-07-05] MEDS ORDERED: PHENYTOIN 100 MG CAPER PO SCH (13:00)
[2023-07-05 15:00] VITALS: PULSE 79; RESP 20; O2SAT 96
[2023-07-05] MEDS ORDERED: TEMAZEPAM 15 MG CAP PO PRN (17:00)
[2023-07-05] MEDS ORDERED: ALPRAZolam 0.5 MG TAB PO PRN (17:00)
[2023-07-05 20:00] VITALS: BP 115/67; PULSE 102; PULSE 77; PULSE 95; RESP 19; RESP 20; TEMP 98.3; O2SAT 94; O2SAT 96
[2023-07-05] MEDS: oxyCODONE 40 MG TABER PO SCH (20:17)
[2023-07-05] MEDS: hydroCHLOROthiazide 25 MG TAB PO SCH (20:18)
[2023-07-05] MEDS ORDERED: SIMVASTATIN 20 MG TAB PO SCH (21:00)
[2023-07-06] VITALS: BP 135/82; PULSE 76; PULSE 77; RESP 20; TEMP 99; O2SAT 94
[2023-07-06 04:00] VITALS: BP 130/78; PULSE 78; PULSE 79; RESP 19; TEMP 98.2; O2SAT 96
[2023-07-06] MEDS: MORPHINE SULFATE 2 MG/ML SYR IVP PRN ×3 (05:42→15:25)
[2023-07-06 06:43] LABS: BASOPHILS % (AUTO) 0.7 % (0.0-2.0); EOSINOPHILS # (AUTO) 0.1 K/uL (0-0.4); EOSINOPHILS % (AUTO) 2.4 % (0.0-4.0); HEMATOCRIT 35.9 % (36-52); HEMOGLOBIN 11.5 g/dL (12.0-18.0); LYMPHOCYTES # (AUTO) 1.7 K/uL (2.0-11.5); MEAN CORPUSCULAR HEMOGLOBIN 24 pg (27-31); MEAN CORPUSCULAR HGB CONC 32 g/dL (33-37); MEAN CORPUSCULAR VOLUME 75.8 fL (80-94); MONOCYTES # (AUTO) 0.5 K/uL (0.8-1.0); MONOCYTES % (AUTO) 10.7 % (1.7-9.3); NEUTROPHILS # (AUTO) 2.7 K/uL (1.8-7.7); NEUTROPHILS % (AUTO) 53.2 % (42.2-75.2); PLATELET COUNT (AUTO) 97 K/uL (140-450); RED BLOOD CELL COUNT(AUTO) 4.73 MIL/uL (4.20-6.10); RED CELL DISTRIBUTION WIDTH 14.6 % (11.6-13.7); WHITE BLOOD COUNT (AUTO) 5.1 K/uL (4.8-10.8)
[2023-07-06] MEDS: LORazepam 2 MG/ML VIAL IVP PRN ×2 (06:50→13:02)
[2023-07-06 08:00] VITALS: BP 121/77; PULSE 113; RESP 17; RESP 19; TEMP 97.8; O2SAT 96
[2023-07-06] MEDS: METOPROLOL 25 MG TAB PO SCH (08:30)
[2023-07-06] MEDS: carisoprodoL 350 MG TAB PO SCH ×2 (08:30→13:02)
[2023-07-06] MEDS: PHENYTOIN 100 MG CAPER PO SCH ×2 (08:30→13:02)
[2023-07-06] MEDS: oxyCODONE 40 MG TABER PO SCH (08:32)
[2023-07-06] MEDS: hydroCHLOROthiazide 25 MG TAB PO SCH (08:33)
[2023-07-06] MEDS ORDERED: CLOPIDOGREL 75 MG TAB PO SCH (09:00)
[2023-07-06] MEDS ORDERED: BENAZEPRIL 20 MG TAB PO SCH (09:00)
[2023-07-06] MEDS: ENOXAPARIN 40 MG/0.4 ML SYR SUBQ SCH (09:00)
[2023-07-06] MEDS ORDERED: ASPIRIN 81 MG TAB.CHEW PO SCH (09:00)
[2023-07-06] MEDS ORDERED: FUROSEMIDE 20 MG TAB PO SCH (09:00)
[2023-07-06 09:41] LABS: ALBUMIN 3.1 g/dL (3.4-5.0); ANION GAP 15.6 (8-16); CALCIUM 8.8 mg/dL (8.5-10.1); CARBON DIOXIDE 25.6 mmol/L (21-32); CREATININE 0.7 mg/dL (0.6-1.3); MAGNESIUM 2.1 mg/dL (1.8-2.4); POTASSIUM 4.2 mmol/L (3.5-5.1); TOTAL BILIRUBIN 0.2 mg/dL (0.0-1.0); TOTAL PROTEIN, SERUM 6.9 g/dL (6.4-8.2)
[2023-07-06 12:00] VITALS: BP 107/67; PULSE 70; RESP 18; TEMP 98.1; O2SAT 97
[2023-07-06] MEDS ORDERED: FURO-570 PO (14:28)
[2023-07-06] MEDS ORDERED: METF-346 PO (14:28)
[2023-07-06] MEDS ORDERED: PHEN100C3 PO (14:28)
[2023-07-06] MEDS ORDERED: GABA300C PO (14:28)
[2023-07-06] MEDS ORDERED: BENA20TA PO (14:28)
[2023-07-06] MEDS ORDERED: CLOP-68 PO (14:28)
[2023-07-06] MEDS ORDERED: CARI350T PO (14:28)
[2023-07-06] MEDS ORDERED: POTA10CA28 PO (14:28)
[2023-07-06] MEDS ORDERED: HYDR-5191 PO (14:28)
[2023-07-06] MEDS ORDERED: LEVE500T18 PO (14:28)
[2023-07-06 15:52] VITALS: BP 107/67; PULSE 71; RESP 18; TEMP 98.1
[2023-07-06 16:06] LABS: CHOL/HDL RATIO 2.1 (1-4.5)
== END 2023-07-06 17:28 | disposition home or self-care (01) ==
LOC: MED 14:52 → MTU 07-05 00:06 → MIC 07-05 06:16 → MTU 07-05 07:37
PROVIDERS: ADMIT Internal Medicine; ATTEND Internal Medicine
DX: R07.89 Other chest pain (principal); I25.10 Atherosclerotic heart disease of native coronary artery without angina pectoris; I50.9 Heart failure, unspecified; G40.909 Epilepsy, unspecified, not intractable, without status epilepticus; E66.9 Obesity, unspecified; J45.909 Unspecified asthma, uncomplicated; I25.2 Old myocardial infarction; Z68.28 Body mass index [BMI] 28.0-28.9, adult; Z79.899 Other long term (current) drug therapy; Z86.73 Personal history of transient ischemic attack (TIA), and cerebral infarction without residual deficits
CPT/HCPCS: 36415; 71045; 80053; 83735; 84484; 85025; 87081; 96372; 96374; 96375; 96376; 99285; G0378; J1650; J2060; J2270

== ENCOUNTER 2023-09-08 00:39 | Observation (INO) | payer MEDICAID, OTHER ==
[~2023-09-08] VITALS: Ht 188 cm; Wt 99.8 kg
[~2023-09-08 00:39] MED LIST changes: +HYDR-5191 PO; +LID5T TP
[2023-09-08 00:45] VITALS: BP 120/83; PULSE 78; RESP 16; TEMP 98; O2SAT 98
[2023-09-08] MEDS: MORPHINE SULFATE 4 MG/ML SYR IVP ONE ×2 (01:58→03:52)
[2023-09-08] MEDS: diphenhydrAMINE 50 MG/ML VIAL IVP ONE (02:28)
[2023-09-08 04:48] VITALS: O2SAT 96
[2023-09-08 05:22] LABS: BASOPHILS % (AUTO) 0.4 % (0.0-2.0); EOSINOPHILS # (AUTO) 0.2 K/uL (0-0.4); EOSINOPHILS % (AUTO) 3.3 % (0.0-4.0); HEMATOCRIT 37.6 % (36-52); LYMPHOCYTES # (AUTO) 1.9 K/uL (2.0-11.5); MEAN CORPUSCULAR HEMOGLOBIN 25 pg (27-31); MEAN CORPUSCULAR HGB CONC 32 g/dL (33-37); MONOCYTES # (AUTO) 0.6 K/uL (0.8-1.0); MONOCYTES % (AUTO) 9.7 % (1.7-9.3); NEUTROPHILS % (AUTO) 52.6 % (42.2-75.2); PLATELET COUNT (AUTO) 118 K/uL (140-450); RED BLOOD CELL COUNT(AUTO) 4.88 MIL/uL (4.20-6.10); RED CELL DISTRIBUTION WIDTH 14.8 % (11.6-13.7); WHITE BLOOD COUNT (AUTO) 5.7 K/uL (4.8-10.8)
[2023-09-08 05:28] LABS: ANION GAP 11.3 (8-16); CALCIUM 8.3 mg/dL (8.5-10.1); CARBON DIOXIDE 29.8 mmol/L (21-32); POTASSIUM 3.1 mmol/L (3.5-5.1)
[2023-09-08 05:42] LABS: ALANINE AMINOTRANSFERASE 32 U/L (12-78); ALBUMIN 3.4 g/dL (3.4-5.0); ALKALINE PHOSPHATASE 83 U/L (50-136); ASPARTATE AMINOTRANSFERASE 30 U/L (15-37); BILIRUBIN,DIRECT 0.1 mg/dL (0.0-0.3); LIPASE 12 U/L (16-77); TOTAL BILIRUBIN 0.2 mg/dL (0.0-1.0); TOTAL PROTEIN, SERUM 8.9 g/dL (6.4-8.2)
[2023-09-08] MEDS ORDERED: ALBUTEROL 0.083% 2.5 MG/3 ML NEBU INH PRN (07:55)
[2023-09-08] MEDS ORDERED: ONDANSETRON 4 MG/2 ML VIAL IVP PRN (07:55)
[2023-09-08] MEDS: ENOXAPARIN 40 MG/0.4 ML SYR SUBQ SCH (09:05)
[2023-09-08] MEDS: MORPHINE SULFATE 2 MG/ML SYR IVP PRN (09:46)
[2023-09-08 14:00] VITALS: RESP 16; O2SAT 98
[2023-09-08] MEDS: ATORVASTATIN 20 MG TAB PO SCH (14:27)
[2023-09-08] MEDS: CLOPIDOGREL 75 MG TAB PO SCH (14:27)
[2023-09-08] MEDS ORDERED: POTASSIUM CHLORIDE 10 MEQ TABER PO ONE (15:35)
[2023-09-08 16:14] VITALS: BP 132/81; PULSE 73; RESP 16; TEMP 98
[2023-09-08 16:55] LABS: AMPHETAMINE, URINE NEGATIVE ng/ml (NEG <=1000); BARBITURATE, URINE POSITIVE ng/ml (NEG <=200); BENZODIAZEPINE, URINE POSITIVE ng/mL (NEG <=200); CANNABINOID, URINE NEGATIVE ng/mL (NEG <=50); COCAINE, URINE NEGATIVE ng/mL (NEG <=300); OPIATE, URINE POSITIVE ng/mL (NEG <=2000); PHENCYCLIDINE SCREEN,URINE NEGATIVE ng/mL (NEG <=25)
== END 2023-09-08 17:15 | disposition home or self-care (01) ==
LOC: MED 00:39 → MTU 07:56
PROVIDERS: ADMIT Internal Medicine; ATTEND Internal Medicine
DX: R07.89 Other chest pain (principal); I25.10 Atherosclerotic heart disease of native coronary artery without angina pectoris; G40.909 Epilepsy, unspecified, not intractable, without status epilepticus; E87.6 Hypokalemia; I11.0 Hypertensive heart disease with heart failure; I50.9 Heart failure, unspecified; J45.909 Unspecified asthma, uncomplicated; E11.9 Type 2 diabetes mellitus without complications; I25.2 Old myocardial infarction; G89.4 Chronic pain syndrome; Z85.028 Personal history of other malignant neoplasm of stomach; Z86.73 Personal history of transient ischemic attack (TIA), and cerebral infarction without residual deficits; Z95.810 Presence of automatic (implantable) cardiac defibrillator; Z79.899 Other long term (current) drug therapy
CPT/HCPCS: 36415; 71045; 80048; 80076; 80305; 82948; 83690; 84484; 85025; 93005; 96372; 96374; 96375; 96376; 99285; G0378; J1200; J1650; J2270; Q0092